=== PATIENT | male | born 1975 | race Caucasian/White ===

== ENCOUNTER → 2021-02-25 09:53 | Outpatient (CLI) | payer OTHER, SELFPAY ==
[2021-02-25 11:48] LABS: Absolute Lymphocyte Count 1.88 X10^3/uL (0.83-4.51); Absolute Neutrophil Count 5.3 X10^3/uL (2.0-7.7); Basophil# 0.05 X10^3/uL; Basophil% 0.6 % (0-1); Eosinophil# 0.09 X10^3/uL; Eosinophils% 1.1 % (0-5); Hematocrit 49.5 % (40-54); Hemoglobin 16.7 g/dL (13.0-16.5); Lymphocyte # 1.88 X10^3/ul (0.83-4.51); Lymphocyte % 23.1 % (19-41); Mean Corp Hgb Conc 33.7 g/dL (32-36); Mean Corpuscular Hgb 29.7 pg (27.0-32.0); Mean Corpuscular Volume 88.1 fL (80-94); Mean Platelet Vol. 9.8 fl (6.2-12.0); Monocyte# 0.73 X10^3/uL; NRBC Flagged by Analyzer 0 % (0-5); Neutrophil # 5.31 X10^3/uL (2.7-7.7); Neutrophil % 65.3 % (47-70); Platelet Count 346 K/mm3 (150-450); RBC Distribution Width CV 12.7 % (11.6-14.6); RBC Distribution Width SD 41.2 fl (35.1-43.9); Red Blood Count 5.62 M/mm3 (4.6-6.2); White Blood Count 8.1 K/mm3 (4.4-11.0)
[2021-02-25 12:14] LABS: ALB/GLOB Ratio 0.9 RATIO (0.9-2.4); AST(SGOT) 12 U/L (15-37); Alanine Aminotransfer ALT/SGPT 21 U/L (16-61); Albumin, Serum 3.7 g/dL (3.2-5.0); Alkaline Phosphatase 88 U/L (45-117); Anion Gap 5 (5-15); BUN 16 mg/dL (7-18); BUN/Creat Ratio 12.2 RATIO (10-20); Calcium,Total 9.4 mg/dL (8.5-10.1); Chloride 106 mmol/L (98-107); Cholesterol 194 mg/dL (200); Creatinine, Serum 1.31 mg/dL (0.70-1.30); EST Glomerular Filtration Rate 63 mL/min (>60); Est Glom Filt Rate - Afr Amer 76 mL/min (>60); Globulin 4.2 g/dL (2.2-4.2); Glucose 88 mg/dL (74-106); High Density Lipoprotein 56 mg/dL; Potassium 4.3 mmol/L (3.5-5.1); Protein, Total 7.9 g/dL (6.4-8.2); Sodium Level 141 mmol/L (136-145); Triglycerides 78 mg/dL; Very Low Density Lipoprotein 16 mg/dL (5-40)
== END ==
PROVIDERS: PCP Family Medicine; Referring Provider Family Medicine; Visit Provider Family Medicine
DX: G47.30 Sleep apnea, unspecified (principal); R31.9 Hematuria, unspecified; E78.5 Hyperlipidemia, unspecified
CPT/HCPCS: 36415; 80053; 80061; 85025

== ENCOUNTER → 2021-03-17 13:00 | Outpatient (CLI) | payer OTHER, SELFPAY | PROVIDERS: PCP Family Medicine; Referring Provider Family Medicine; Visit Provider Family Medicine | DX: G47.30 Sleep apnea, unspecified (principal) | CPT/HCPCS: 95806 ==

== ENCOUNTER → 2021-03-24 12:00 | Outpatient (CLI) | payer OTHER, SELFPAY ==
[2021-03-10 07:41] VITALS: BMI 36.5
== END ==
PROVIDERS: PCP Family Medicine; Referring Provider Family Medicine; Visit Provider Family Medicine
DX: Z46.89 Encounter for fitting and adjustment of other specified devices (principal)

== ENCOUNTER 2021-04-01 08:53 | Day surgery (SDC) | payer OTHER, SELFPAY ==
[2021-03-10 07:41] VITALS: BMI 36.5
--- NOTE | 2021-04-01 | IMM_PTH ---
PATIENT: ERIC OLIVAS LOC: EN U#:[id number] AGE/SX: 45/M ROOM: RE04/01/[address]: Dr. Brendon Tanner MD : 1975 BED: DIS: 04/01/2021 SPEC #: [id number] RECD: 04/05/21 11:11 STATUS: HERIBERTO REQ #: [id number] SANTY: 04/01/21 00:[address]: Brendon Tanner DEPT: IMMUNOHISTOCHEMISTRY RECD BY: Shira Miranda ENTERED: 04/05/21 11:13 SP TYPE: IMMUNO OTHR DR: Dr. Zuleima Botello MD Tissues: A - Sigmoid colon biopsy Procedures: MSH2 (add) MLH-1 (add) MSH6 (add) Anti-PMS2 (add) VELASQUEZ-2 (add) HER2 MOJGAN (add) P53 (add) KI-67 (initial) PHYSICIAN & INSTITUTION [place] [id number] SPECIMEN INFORMATION: Tissue Source: A ? Proximal sigmoid colon mass biopsy Clinical Info: Family history colon cancer Specimen Number: [id number] CPT code: 35734, 64899 x7 METHODOLOGY: Deparaffinized sections of prefer/formalin-fixed tissue or PAP/DQ stained slides are incubated with monoclonal/polyclonal antibodies/oligonucleotide probes. Localization is made via biotin free immunoperoxidase method. Appropriate controls are performed and reacted as expected. Results on target cell population are indicated in the following table: RESULTS: ANTIBODY / CLONE RESULT Block A Ki-67 (30-9) positive, >90% P53 (DO-7) positive, >95% VELASQUEZ-2 (SP21) positive MLH-1 (M1) positive MSH2 (25D12) positive MSH6 (44) positive PMS2 (XZV3853) positive Her-2neu (CB11) negative These tests were developed and their performance characteristics determined by [facility]. They may not have been cleared or approved by the U.S. Food and Drug Administration. The FDA has determined that such clearance or approval is not necessary. The above immunohistochemical/dualISH markers are ordered and reviewed by the Pathologist. INTERPRETATION: A. Proximal sigmoid colon mass, biopsy: Invasive adenocarcinoma. Result of Microsatellite Instability Study: Negative (no loss of mismatch protein; no microsatellite instability detected). AM:jesus alberto 04/07/2021
[2021-04-01 09:15] VITALS: BP 123/88; PULSE 84; RESP 16; TEMP 36.1; O2SAT 100; BMI 35.4
[2021-04-01] MEDS: Lactated Ringers 1,000 ML 100 ML IV (09:15)
--- NOTE | 2021-04-01 09:26 | HP.PCM_ITS ---
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: No Accompanied by: Is patient in pain?: No Allergies shellfish derived Adverse Reaction (Intermediate, Verified 03/10/21 07:39) GI Upset Medications ibuprofen 800 mg tablet 800 mg PO BID PRN tab 03/10/21 [History Confirmed 03/10/21] psyllium husk 0.52 gram capsule 0.52 g PO ONCE cap 03/10/21 [History Confirmed 03/10/21] PFSH Medical History Back problem Blood in stool Constipation Family history of colon cancer in father Fatigue Hemorrhoid Intermittent lower abdominal pain Suspected sleep apnea Surgical History No significant past surgical history Family History Father Colon cancer Lung cancer Liver cancer Hypertension CVA (cerebral vascular accident) Mother MS (multiple sclerosis) Social History Smokeless tobacco user: chewing tobacco alcohol intake: current alcohol intake frequency: a few times a week substance use type: does not use caffeine: Yes frequency: does not exercise HPI HPI HPI: ERIC OLIVAS, is a 45 M who presents to the office today for surgical consultation regarding family history of colon cancer in his father. 45-year-old gentleman. His father developed colon cancer at age 52. The patient for multiple years has had intermittent rectal bleeding but this has been attributed to internal hemorrhoids. If he utilizes Metamucil that he has decreased bleeding. Occasionally has discomfort but not severe. More recently over the past several months he has lost some weight about 10 to 15 pounds. He thinks it may be secondary to not eating junk food. 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 He has not had COVID-19 of which he is aware. He has not pursued vaccination today. He does chew tobacco. He occasionally will have intermittent bouts of low abdominal pain. These are nonspecific. As of February 25, 2021 his white count was 8.1 with he will 16.7 medical at 49.5 with a count 346,000 with a normal differential. BUN was 16 creatinine 1.31. Liver function tests were normal. The patient is referred by his primary care physician Dr. Zuleima Botello for surgical consultation for possible colonoscopy based upon family history and a written copy of my consultation will be returned to her. ROS General General: Yes fatigue; No weight change, appetite, colon cancer, breast cancer or weakness HEENT HEENT: No difficulty swallowing, eye injury, eye surgery, swollen glands or hoarseness Endo Endocrine: No thyroid disease, diabetes mellitus, thyroid cancer, Hair loss, heat intolerance or cold intolerance Skin Skin: No rash or changing moles Musc Musculoskeletal: Yes back problems; No arthritis, rheumatoid arthritis, gout or joint pain Cardio Cardiovascular: No murmur, pacemaker, heart disease, atrial fibrillation, high blood pressure, heart attack, heart stent, palpitations, shortness of breat with exertion or chest pain Psych Psychiatric: No depression, anxiety or hearing voices Resp Respiratory: No shortness of breath, Yes sleep apnea, No cough, No COPD, No asthma, No emphysema and No wheezing Gastro Gastrointestinal: Yes abdominal pain, No nausea or vomiting, No diarrhea, Yes constipation, Yes blood in stool, No acid reflux, Yes hemorrhoids, No ulcers, No gallbladder problem and No black,tarry stools Satya Hematologic: No blood thinners, No blood disorders, No bleeding, No anemia and No blood clots Neuro Neurologic: No weakness Exam Const General: cooperative, comfortable and no acute distress Nutritional Appearance: obese Orientation: alert and awake [facility] Head: normal to inspection Eyes General: appearance normal, both eyes and all related structures Chest Chest palpation & inspection: normal inspection of the chest Resp Effort & Inspection: normal respiratory effort Auscultation: clear to auscultation bilaterally Cardio Rate: regular rate Rhythm: regular rhythm GI Palpation: soft and no hepatosplenomegaly Auscultation: normal bowel sounds Musc Cervical Spine: normal cervical lordosis Neuro General: patient alert and patient awake Extrem General: no calf tenderness bilaterally Psych Affect: anxious affect COVID (Procedure Consent) Procedure Criteria Procedure Criteria: Yes Elective The surgeon/proceduralist and patient have discussed in detail the risk of exposure to and/or potential harm posed by the COVID-19 virus with having a surgery/procedure at this time versus the risk of delaying the surgery/procedure. It is not possible to know either the risk of delaying the surgery or procedure or chance of getting an infection with perfect accuracy, but a joint decision was made between the patient and the surgeon/proceduralist to proceed at this time with the scheduled surgery/procedure as indicated on the consent form. Assessment and Plan Assessment and Plan (1) Family history of colon cancer in father: Status: Acute Comment: age 52 Plan Details Additional Comments: Family history of colon cancer in his father at age 52. Chronic history of intermittent rectal bleeding which was felt to be secondary to hemorrhoids. Some mild anal discomfort. 10 to 15 pound recent weight loss undetermined whether this is dietary change. Some intermittent low abdominal pain of undetermined etiology. I propose for him a colonoscopy with possible biopsy or polypectomy as indicated. In detail have discussed the technique benefit risk complications and alternatives. He is a larger gentleman has had some difficulties with tending toward constipation more. I propose a 2-day bowel prep. I also would like to use monitored anesthesia care. I did take the opportunity today to additionally chromosomal disorders counselor the patient regarding the COVID-19 vaccination. I have discussed benefit and risks of vaccination. He has had an additional opportunity to ask and have questions answered. He will consider his ongoing option in that regard. I appreciate the opportunity of assisting with his surgical care Copy: Dr. Zuleima Tanner M.D., F.A.C.S. I have re-examined the patient. There are no clinical changes since date of exam.
--- NOTE | 2021-04-01 10:00 | COLBX_PTH ---
PATIENT: ERIC OLIVAS LOC: EN U#:[id number] AGE/SX: 45/M ROOM: RE04/01/[address]: Dr. Brendon Tanner MD : 1975 BED: DIS: 04/01/2021 SPEC #: [id number] RECD: 04/01/21 13:07 STATUS: HERIBERTO CHRISTENSEN #: [id number] SANTY: 04/01/21 10:[address]: Brendon Tanner DEPT: SURGICAL PATHOLOGY RECD BY: Ana Paula Moss ENTERED: 04/01/21 13:27 SP TYPE: COLON BX OT DR: Dr. Zuleima Botello MD Tissues: A - Sigmoid colon biopsy B - Sigmoid colon biopsy Procedures: Surgery Specimen Level IV HEADER OPERATION: Colonoscopy (MAC) PRE-OP DIAGNOSIS: Family history of colon cancer TISSUE SUBMITTED: A ? Proximal sigmoid mass biopsy at 30 cm, B ? Mid sigmoid lesion biopsy MICROSCOPIC DIAGNOSIS A. Proximal sigmoid colon mass, biopsy: Invasive well to moderately differentiated adenocarcinoma. See comment. B. Mid sigmoid colon lesion, biopsy: Hyperplastic polyp. AM:jesus alberto 04/05/2021 COMMENT A. Immunohistochemistry ([id number]) for microsatellite instability will be performed and the results will be reported separately. MICROSCOPIC DESCRIPTION Slides are reviewed. GROSS DESCRIPTION A - Received in fixative is one container labeled with the patient's name and designated proximal sigmoid mass biopsy. The specimen consists of multiple irregular fragments of light edwards soft tissue that in aggregate measure 1 x 0.5 x 0.1 cm. The specimen is totally submitted in one cassette. B - Received in fixative is one container labeled with the patient's name and designated mid sigmoid lesion biopsy. The specimen consists of multiple irregular fragments of light edwards soft tissue that in aggregate measure 0.5 x 0.5 x 0.1 cm. The specimen is totally submitted in one cassette. / SJ:jesus alberto 04/01/21 TC:0 CPT: 97757 x2
[2021-04-01 10:30] VITALS: BP 113/81; BP 123/88; PULSE 84; RESP 16; TEMP 36.9; O2SAT 97
--- NOTE | 2021-04-01 10:33 | OP.CCLET_ITS ---
04/01/2021 Zuleima Botello [place] [id number] [address] Re : Colonoscopy procedure for Lan Garcia Dear Dr. Botello This procedure was performed on Thursday, April 01, 2021. My impressions and recommendations are as follows: Impressions : - One 5 mm polyp in the mid sigmoid colon, removed with a cold biopsy forceps. Resected and retrieved. - Malignant partially obstructing tumor in the proximal sigmoid colon. Biopsied. - An area in the proximal sigmoid colon just distal to the obstructing lesion was successfully injected with michael ink. Recommendations : - Discharge patient to home. - Resume previous diet. - Continue present medications. - Surgical consultation for consideration of a left hemicolectomy at appointment to be scheduled. - Repeat colonoscopy in 4 months for surveillance. My findings are described in the full procedure note, which is enclosed. If I can be of further assistance, please feel free to contact me at Doctor phone number(s): Work: . Sincerely, Brendon Tanner MD 04/01/2021 10:33:09 AM This report has been signed electronically.
--- NOTE | 2021-04-01 10:33 | OP.COLON_ITS ---
Patient Name: Lan Garcia Procedure Date: 04/01/2021 9:57 AM Date of : 1975 Age: 45 Procedure: Colonoscopy Indications: Screening in patient at increased risk: Family history of 1st-degree relative with colorectal cancer before age 60 years Providers: Brendon Tanner MD Referring MD: Zuleima Botello Medicines: See the Anesthesia note for documentation of the administered medications Patient Profile: Last Colonoscopy: none. The patient's first colonoscopy is today. Complications: No immediate complications. Procedure: Pre-Anesthesia Assessment: - Prior to the procedure, a History and Physical was performed, and patient medications and allergies were reviewed. The patient's tolerance of previous anesthesia was also reviewed. The risks and benefits of the procedure and the sedation options and risks were discussed with the patient. All questions were answered, and informed consent was obtained. Prior Anticoagulants: The patient has taken no previous anticoagulant or antiplatelet agents. ASA Grade Assessment: II - A patient with mild systemic disease. After reviewing the risks and benefits, the patient was deemed in satisfactory condition to undergo the procedure. After I obtained informed consent, the scope was passed under direct vision. Throughout the procedure, the patient's blood pressure, pulse, and oxygen saturations were monitored continuously. The pediatric colonoscope was introduced through the anus and advanced to the sigmoid colon. The colonoscopy was performed without difficulty. The patient tolerated the procedure well. The quality of the bowel preparation was good. Scope In: 10:08:17 AM Scope Out: 10:24:34 AM Total Procedure Duration Time 0 hours 16 minutes 17 seconds Findings: The perianal and digital rectal examinations were normal. A 5 mm polyp was found in the mid sigmoid colon. The polyp was sessile. The polyp was removed with a cold biopsy forceps. Resection and retrieval were complete. An infiltrative partially obstructing large mass was found in the proximal sigmoid colon. The mass was circumferential. No bleeding was present. This was biopsied with a cold forceps. An area in the proximal sigmoid colon was successfully injected with 4 mL Grecia ink for tattooing. Impression: - One 5 mm polyp in the mid sigmoid colon, removed with a cold biopsy forceps. Resected and retrieved. - Malignant partially obstructing tumor in the proximal sigmoid colon. Biopsied. - An area in the proximal sigmoid colon just distal to the obstructing lesion was successfully injected with grecia ink. Recommendation: - Discharge patient to home. - Resume previous diet. - Continue present medications. - Surgical consultation for consideration of a left hemicolectomy at appointment to be scheduled. - Repeat colonoscopy in 4 months for surveillance. Procedure Code(s): --- Professional --- 96840, 52, Colonoscopy, flexible; with biopsy, single or multiple 04476, 52, Colonoscopy, flexible; with directed submucosal injection(s), any substance Diagnosis Code(s): --- Professional --- Z80.0, Family history of malignant neoplasm of digestive organs D12.5, Benign neoplasm of sigmoid colon C18.7, Malignant neoplasm of sigmoid colon K56.690, Other partial intestinal obstruction CPT copyright 2017 [employer]. All rights reserved. The codes documented in this report are preliminary and upon tax compliance manager review may be revised to meet current compliance requirements. Brendon Tanner MD 04/01/2021 10:33:09 AM This report has been signed electronically. Number of Addenda: 0 Note Initiated On: 04/01/2021 9:57 AM
[2021-04-01 10:35] VITALS: BP 123/88; BP 98/67; PULSE 76; RESP 16; O2SAT 95
[2021-04-01 10:40] VITALS: BP 103/71; BP 123/88; PULSE 81; RESP 16; O2SAT 98
[2021-04-01 10:45] VITALS: BP 109/82; BP 123/88; PULSE 67; RESP 16; TEMP 37.2; O2SAT 97
[2021-04-01 11:32] LABS: Absolute Neutrophil Count 3.6 X10^3/uL (2.0-7.7); Basophil# 0.03 X10^3/uL; Basophil% 0.6 % (0-1); Eosinophil# 0.05 X10^3/uL; Eosinophils% 0.9 % (0-5); Hematocrit 47.8 % (40-54); Hemoglobin 15.8 g/dL (13.0-16.5); Lymphocyte % 22.6 % (19-41); Mean Corp Hgb Conc 33.1 g/dL (32-36); Mean Corpuscular Hgb 28.9 pg (27.0-32.0); Mean Corpuscular Volume 87.4 fL (80-94); Mean Platelet Vol. 9.1 fl (6.2-12.0); Monocyte# 0.48 X10^3/uL; NRBC Flagged by Analyzer 0 % (0-5); Neutrophil # 3.55 X10^3/uL (2.7-7.7); Neutrophil % 66.7 % (47-70); Platelet Count 303 K/mm3 (150-450); RBC Distribution Width CV 12.8 % (11.6-14.6); RBC Distribution Width SD 41.3 fl (35.1-43.9); Red Blood Count 5.47 M/mm3 (4.6-6.2); White Blood Count 5.3 K/mm3 (4.4-11.0)
--- NOTE | 2021-04-01 11:40 | RAD_ITS ---
STUDY: X-RAY CHEST REASON FOR EXAM: Male, 45 years old. Colon mass TECHNIQUE: PA and lateral views of the chest. COMPARISON: None. FINDINGS: The lungs are clear and expanded. There is no demonstrated pleural abnormality. Normal size heart. Normal mediastinum and say. Normal visualized pulmonary arteries. Normal visualized aortic arch and descending thoracic aorta. Normal visualized thoracic spine. Normal visualized ribs, clavicles, and shoulders. There is no demonstrated abnormality of the visualized soft tissue structures of the upper abdomen. RAD/Chest PA and Lateral IMPRESSION: Normal x-ray examination of the chest. Electronically Signed: Renato Alexandra MD at 15:18 EDT , Service support ,
[2021-04-01 11:41] VITALS: BP 123/88
[2021-04-01 11:54] LABS: AST(SGOT) 9 U/L (15-37); Alanine Aminotransfer ALT/SGPT 17 U/L (16-61); Albumin, Serum 3.5 g/dL (3.2-5.0); Alkaline Phosphatase 91 U/L (45-117); Anion Gap 4 (5-15); BUN 10 mg/dL (7-18); BUN/Creat Ratio 8.2 RATIO (10-20); Calcium,Total 8.8 mg/dL (8.5-10.1); Chloride 103 mmol/L (98-107); Creatinine, Serum 1.22 mg/dL (0.70-1.30); EST Glomerular Filtration Rate 68 mL/min (>60); Est Glom Filt Rate - Afr Amer 82 mL/min (>60); Estimated Creatinine Clearance 83.93 ml/min; Globulin 3.5 g/dL (2.2-4.2); Glucose 88 mg/dL (74-106); Potassium 4.8 mmol/L (3.5-5.1); Sodium Level 139 mmol/L (136-145)
[2021-04-02 08:42] LABS: Carcinoembryonic Antigen 1.1 ng/mL (0.0-4.7)
== END 2021-04-01 11:43 ==
LOC: EN 08:53 → AC 08:54
PROVIDERS: PCP Family Medicine; Referring Provider Family Medicine; Visit Provider Surgery
PROC: 0DJD8ZZ Inspection of Lower Intestinal Tract, Via Natural or Artificial Opening Endoscopic (ICD-10-PCS; CPT 45378; principal; 2021-04-01 09:55)
DX: Z12.11 Encounter for screening for malignant neoplasm of colon (principal); C18.7 Malignant neoplasm of sigmoid colon; K63.5 Polyp of colon; E66.9 Obesity, unspecified; F17.220 Nicotine dependence, chewing tobacco, uncomplicated; G47.30 Sleep apnea, unspecified; Z80.0 Family history of malignant neoplasm of digestive organs; Z68.35 Body mass index [BMI] 35.0-35.9, adult
CPT/HCPCS: 45380; 45381; 71046; 80053; 82378; 85025; 87426; 88305; 88341; 88342; C9803; J7120; A4648; J2405

== ENCOUNTER → 2021-04-07 08:46 | Outpatient (CLI) | payer OTHER, SELFPAY ==
[2021-04-01 09:15] VITALS: BMI 35.4
--- NOTE | 2021-04-07 09:13 | CT_ITS ---
STUDY: CT ABDOMEN AND PELVIS WITH CONTRAST REASON FOR EXAM: Male, 45 years old. Colon mass. RADIATION DOSAGE (If Supplied By Facility): CTDIvol = ( 16.87 ) mGy, DLP = ( 1452.96 ) mGycm TECHNIQUE: Transaxial images were obtained from the dome of the diaphragm to the symphysis pubis with oral contrast. Oral and amp; IV Readi-CAT and amp; 100mL Isovue-300 was administered. Sagittal and coronal images were reconstructed. Individualized dose optimization techniques were used for this CT. COMPARISON: None. FINDINGS: The visualized lung bases are unremarkable. Mild coronary artery calcification. Scattered multiple hepatic cysts. There are multiple gallstones. Normal spleen. Normal pancreas. Normal bilateral adrenal glands. 1 cm cyst in the upper pole of the right kidney. Small cysts in the upper pole of the left kidney. There is a small hiatal hernia. This 1.7 cm x 1.7 cm by 1.1 cm rounded low density abnormality in the second portion of the duodenum at the level of the ampulla of VATER. Endoscopic evaluation is recommended. Normal small intestine. There is diffuse thickening of the sigmoid colon as seen on axial image #110 and coronal image #46 through 52. Mild increased markings are seen in the surrounding fat. There is evidence of a sigmoid diverticulosis. The appendix is visualized and appears normal. Normal abdominal aorta. Normal inferior vena cava. Normal retroperitoneum. The bladder is not completely distended although there is evidence of diffuse bladder wall thickening. There are prostatic calcifications. There is a small umbilical hernia containing fat. There are mild degenerative changes of the visualized lumbar spine. CT/Abdomen/Pelvis WITH Contrast IMPRESSION: Scattered hepatic cysts. Small bilateral renal cysts likely more prominent on the left side. There is a 1.7 cm x 1.7 cm by 1.1 cm rounded low density abnormality in the second portion of the duodenum at the level of the ampulla of VATER. Endoscopic evaluation is recommended. Diffuse mural thickening of the sigmoid colon as described. Mild increased markings in the surrounding peritoneal fat as well as diverticulosis. Electronically Signed: Renato Alexandra MD at 10:02 EDT , Service support ,
== END ==
LOC: CT 08:47
PROVIDERS: PCP Family Medicine; Referring Provider Surgery; Visit Provider Surgery
DX: K63.89 Other specified diseases of intestine (principal)
CPT/HCPCS: 74177; Q9967

== ENCOUNTER 2021-04-11 08:46 | Inpatient (IN) | payer OTHER, SELFPAY ==
--- NOTE | 2021-04-07 08:45 | EKG12_ITS ---
Test Reason : PREOP Blood Pressure : / mmHG Vent. Rate : 091 BPM Atrial Rate : 091 BPM P-R Int : 180 ms QRS Dur : 076 ms QT Int : 356 ms P-R-T Axes : 056 004 034 degrees QTc Int : 437 ms Normal sinus rhythm Normal ECG Confirmed by RASHEL LAL, RADHA ([id number]), sound editor CYNDIE SOLOMON ([id number]) on 04/11/2021 12:44:22 PM Referred By: Brendon Tanner Confirmed By:RADHA KISER MD
[2021-04-07 12:15] LABS: Magnesium 2.3 mg/dL (1.6-2.6)
[2021-04-08 05:27] VITALS: BMI 35.4
[2021-04-11] VITALS (15 sets, daily range): BP systolic 114–167; BP diastolic 82–107; PULSE 73–107; RESP 16–17; TEMP 36.2–37.2; O2SAT 96–100; BMI 35.5; BMI 35.4
--- NOTE | 2021-04-11 | IMM_PTH ---
PATIENT: ERIC OLIVAS LOC: MS3 U#:[id number] AGE/SX: 45/M ROOM: PA313 RE04/11/[address]: Dr. Brendon Tanner MD : 1975 BED: 1 DIS: 04/12/2021 SPEC #: [id number] RECD: 04/14/21 12:08 STATUS: HERIBERTO CHRISTENSEN #: [id number] SANTY: 04/11/21 00:[address]: Brendon Tanner DEPT: IMMUNOHISTOCHEMISTRY RECD BY: Shira Miranda ENTERED: 04/14/21 12:09 SP TYPE: IMMUNO OTHR DR: Dr. Zuleima Botello MD Tissues: F - Liver, NOS Procedures: SMA (add) DESMIN (add) Vimentin (initial) S-100 (add) PHYSICIAN & INSTITUTION [place] [id number] SPECIMEN INFORMATION: Tissue Source: F ? Liver biopsy Clinical Info: Colon cancer Specimen Number: [id number] CPT code: 43041, 23363 x3 METHODOLOGY: Deparaffinized sections of prefer/formalin-fixed tissue or PAP/DQ stained slides are incubated with monoclonal/polyclonal antibodies/oligonucleotide probes. Localization is made via biotin free immunoperoxidase method. Appropriate controls are performed and reacted as expected. Results on target cell population are indicated in the following table: RESULTS: ANTIBODY / CLONE RESULT Block F Vimentin (V9) positive Actin (1A4) negative Desmin (CE-R-11) negative S-100 (4C4.9) positive These tests were developed and their performance characteristics determined by [facility]. They may not have been cleared or approved by the U.S. Food and Drug Administration. The FDA has determined that such clearance or approval is not necessary. The above immunohistochemical/dualISH markers are ordered and reviewed by the Pathologist. INTERPRETATION: F. Liver biopsy: Fragments of nerve bundles attached to capsular surface of the liver tissue. Negative for carcinoma. SJ:jesus alberto 04/15/2021
[2021-04-11] MEDS: Acetaminophen 500 MG Tablet 1000 MG PO ×2 (09:48→20:06)
[2021-04-11] MEDS: Gabapentin 600 MG Tablet PO (09:48)
[2021-04-11] MEDS: Lactated Ringers 1,000 ML 40 ML IV (09:49)
[2021-04-11 09:51] LABS: Bedside Glucose 111 mg/dL (70-110)
[2021-04-11] MEDS: Cefotetan 2 GM in 0.9% NS 100 ML IV (10:44)
--- NOTE | 2021-04-11 10:44 | HP.PCM_ITS ---
History and Physical Date of Admission: 04/11/21 Intake Visit Reasons: Discuss c-scope path and testing Chief Complaint: f/u c-scope Ocean Import Representative Required: No Is patient in pain?: No Allergies shellfish derived Adverse Reaction (Intermediate, Verified 04/08/21 10:19) GI Upset Medications ibuprofen 800 mg tablet 800 mg PO BID PRN tab 03/10/21 [History Confirmed 04/08/21] psyllium husk 0.52 gram capsule 0.52 g PO ONCE cap 03/10/21 [History Confirmed 04/08/21] metronidazole 500 mg tablet 500 mg PO DIRECTED #6 tab 04/08/21 [Rx Confirmed 04/08/21] neomycin 500 mg tablet 500 mg PO DIRECTED #6 tab 04/08/21 [Rx Confirmed 04/08/21] PFSH Medical History Alcohol use Back problem BiPAP (biphasic positive airway pressure) dependence Blood in stool Colon cancer Colonic mass Constipation CPAP (continuous positive airway pressure) dependence Family history of colon cancer in father Fatigue Hemorrhoid Intermittent lower abdominal pain Migraine headache Sleep apnea Smoker Surgical History No significant past surgical history Family History Father Colon cancer Lung cancer Liver cancer Hypertension CVA (cerebral vascular accident) Mother MS (multiple sclerosis) Social History Smoking Status: Current every day smoker tobacco type: smokeless tobacco Smokeless tobacco user: chewing tobacco alcohol intake: current alcohol intake frequency: a few times a week substance use type: does not use caffeine: Yes frequency: does not exercise HPI HPI HPI: ERIC OLIVAS, is a 45 M who presents to the office today for ongoing surgical discussion regarding a previous attempted colonoscopy on April 01, 2021 identified an obstructing sigmoid lesion. Since that time the patient has had a complete metabolic profile which was normal. A CEA level on April 01, 2021 which was 1.1. A chest x-ray on April 01, 2021 which was normal. A complicated CT scan of the abdomen pelvis showing hepatic cysts and renal cysts and a 1.7 x 1.7 x 1.1 cm rounded low-density abnormality of the second portion of the duodenum at the level of the ampulla of Vater. Multiple gallstones. Diffuse mural thickening of the sigmoid colon. Mild increased markings seen in the surrounding fat. Sigmoid to have a low cysts. Small umbilical hernia containing fat. Intake Visit Reasons: CSCOPE Chief Complaint: Family hx of colon cancer Ocean Import Representative Required: No Accompanied by: Is patient in pain?: No Allergies shellfish derived Adverse Reaction (Intermediate, Verified 03/10/21 07:39) GI Upset Medications ibuprofen 800 mg tablet 800 mg PO BID PRN tab 03/10/21 [History Confirmed 03/10/21] psyllium husk 0.52 gram capsule 0.52 g PO ONCE cap 03/10/21 [History Confirmed 03/10/21] PFSH Medical History Back problem Blood in stool Constipation Family history of colon cancer in father Fatigue Hemorrhoid Intermittent lower abdominal pain Suspected sleep apnea Surgical History No significant past surgical history Family History Father Colon cancer Lung cancer Liver cancer Hypertension CVA (cerebral vascular accident) Mother MS (multiple sclerosis) Social History Smokeless tobacco user: chewing tobacco alcohol intake: current alcohol intake frequency: a few times a week substance use type: does not use caffeine: Yes frequency: does not exercise HPI HPI HPI: ERIC OLIVAS, is a 45 M who presents to the office today for surgical consultation regarding family history of colon cancer in his father. 45-year-old gentleman. His father developed colon cancer at age 52. The patient for multiple years has had intermittent rectal bleeding but this has been attributed to internal hemorrhoids. If he utilizes Metamucil that he has decreased bleeding. Occasionally has discomfort but not severe. More recently over the past several months he has lost some weight about 10 to 15 pounds. He thinks it may be secondary to not eating junk food. 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 He has not had COVID-19 of which he is aware. He has not pursued vaccination today. He does chew tobacco. He occasionally will have intermittent bouts of low abdominal pain. These are nonspecific. As of February 25, 2021 his white count was 8.1 with he will 16.7 medical at 49.5 with a count 346,000 with a normal differential. BUN was 16 creatinine 1.31. Liver function tests were normal. The patient is referred by his primary care physician Dr. Zuleima Botello for surgical consultation for possible colonoscopy based upon family history and a written copy of my consultation will be returned to her. ROS General General: Yes fatigue; No weight change, appetite, colon cancer, breast cancer or weakness HEENT HEENT: No difficulty swallowing, eye injury, eye surgery, swollen glands or hoarseness Endo Endocrine: No thyroid disease, diabetes mellitus, thyroid cancer, Hair loss, heat intolerance or cold intolerance Skin Skin: No rash or changing moles Musc Musculoskeletal: Yes back problems; No arthritis, rheumatoid arthritis, gout or joint pain Cardio Cardiovascular: No murmur, pacemaker, heart disease, atrial fibrillation, high blood pressure, heart attack, heart stent, palpitations, shortness of breat with exertion or chest pain Psych Psychiatric: No depression, anxiety or hearing voices Resp Respiratory: No shortness of breath, Yes sleep apnea, No cough, No COPD, No asthma, No emphysema and No wheezing Gastro Gastrointestinal: Yes abdominal pain, No nausea or vomiting, No diarrhea, Yes constipation, Yes blood in stool, No acid reflux, Yes hemorrhoids, No ulcers, No gallbladder problem and No black,tarry stools Satya Hematologic: No blood thinners, No blood disorders, No bleeding, No anemia and No blood clots Neuro Neurologic: No weakness Exam Const General: cooperative, comfortable and no acute distress Nutritional Appearance: obese Orientation: alert and awake [facility] Head: normal to inspection Eyes General: appearance normal, both eyes and all related structures Chest Chest palpation & inspection: normal inspection of the chest Resp Effort & Inspection: normal respiratory effort Auscultation: clear to auscultation bilaterally Cardio Rate: regular rate Rhythm: regular rhythm GI Palpation: soft and no hepatosplenomegaly Auscultation: normal bowel sounds Musc Cervical Spine: normal cervical lordosis Neuro General: patient alert and patient awake Extrem General: no calf tenderness bilaterally Psych Affect: anxious affect COVID (Procedure Consent) Procedure Criteria Procedure Criteria: Yes Elective The surgeon/proceduralist and patient have discussed in detail the risk of exposure to and/or potential harm posed by the COVID-19 virus with having a surgery/procedure at this time versus the risk of delaying the surgery/procedure. It is not possible to know either the risk of delaying the surgery or procedure or chance of getting an infection with perfect accuracy, but a joint decision was made between the patient and the surgeon/proceduralist to proceed at this time with the scheduled surgery/procedure as indicated on the consent form. Assessment and Plan Assessment and Plan (1) Family history of colon cancer in father: Status: Acute Comment: age 52 Plan Details Additional Comments: Family history of colon cancer in his father at age 52. Chronic history of intermittent rectal bleeding which was felt to be secondary to hemorrhoids. Some mild anal discomfort. 10 to 15 pound recent weight loss undetermined whether this is dietary change. Some intermittent low abdominal pain of undetermined etiology. I propose for him a colonoscopy with possible biopsy or polypectomy as indicated. In detail have discussed the technique benefit risk complications and alternatives. He is a larger gentleman has had some difficulties with tending toward constipation more. I propose a 2-day bowel prep. I also would like to use monitored anesthesia care. I did take the opportunity today to additionally res counselor the patient regarding the COVID-19 vaccination. I have discussed benefit and risks of vaccination. He has had an additional opportunity to ask and have questions answered. He will consider his ongoing option in that regard. I appreciate the opportunity of assisting with his surgical care Copy: Dr. Zuleima Tanner M.D., F.A.C.S. YAMILE (Procedure Consent) Procedure Criteria Procedure Criteria: Yes Elective The surgeon/proceduralist and patient have discussed in detail the risk of exposure to and/or potential harm posed by the COVID-19 virus with having a surgery/procedure at this time versus the risk of delaying the surgery/procedure. It is not possible to know either the risk of delaying the surgery or procedure or chance of getting an infection with perfect accuracy, but a joint decision was made between the patient and the surgeon/proceduralist to proceed at this time with the scheduled surgery/procedure as indicated on the consent form. Assessment and Plan Assessment and Plan (1) Colon cancer: Status: Acute Qualifiers: Colon location: sigmoid Qualified Code(s): C18.7 - Malignant neoplasm of sigmoid colon (2) Cholelithiasis with chronic cholecystitis: Status: Chronic Qualifiers: Biliary obstruction: without biliary obstruction Cholelithiasis location: gallbladder Qualified Code(s): K80.10 - Calculus of gallbladder with chronic cholecystitis without obstruction (3) Umbilical hernia without obstruction or gangrene: Status: Acute (4) Liver cyst: Status: Acute (5) Renal cyst: Status: Acute (6) Duodenal mass: Status: Acute Plan - Dr. Brendon Tanner MD: 45-year-old gentleman with an obstructing sigmoid colon adenocarcinoma. I was unable to advance past it with my colonoscope. There is evidence of transmural inflammation and mesenteric streaking. This is at the level of the pelvic brim crossing the ureter. In addition it is of note that he has a rounded lesion of the duodenum near the ampulla of Vater. He has multiple gallstones identified. He has liver cysts and renal cysts that would otherwise appear to be benign. He has a small umbilical hernia. At this point I think it is reasonable to offer him a laparoscopic cholecystectomy with cholangiograms to get the cholangiogram to assess the distal common bile duct and flow into the duodenum. He is already scheduled for colon surgery and he has a obstructing lesion. I would not be combining duodenal surgery and colon surgery and so we will follow-up with the duodenal finding at a later stage with an upper endoscopy. The cholangiogram may be additionally helpful and his chronic cholecystitis cholelithiasis will be treated. I anticipate hopefully a laparoscopic sigmoid colectomy. I will convert to a hand-assisted or open approach if indicated. Because of its positioning I will see if urology is available to put up a left ureteral catheter. I anticipate using a ERAS program. Anticipate performing a bilateral tap block under laparoscopic visualization. The patient is aware of the technique, benefit, risk, alternatives. He has had an opportunity to ask and have questions answered. He is aware that this procedure is of increased complexity. In addition he will require after he is recovered a follow-up colonoscopy as the entire colon was unable to be inspected. Because of the severity of the process identified endoscopically I was not comfortable performing a barium enema for co ncern of during the process into an urgent complete colonic obstruction. We will pursue the postoperative esophagogastroduodenoscopy either at the same time or sooner if deemed to be indicated. Today's appointment was an extensive 45-minute consultative descriptive appointment regarding plan treatment plans. The patient is aware that postoperatively we will be strongly recommending hematology oncology consultation. He is aware that additional treatment may be required. He has had an opportunity to ask and have questions answered. He is scheduled for definitive surgery on April 11, 2021. We will proceed as noted. Copy: Dr. Zuleima Tanner M.D., F.A.C.S. Plan Details Other Medications: New: neomycin Take 2 tablets by mouth at 1pm, 3pm, and 11pm the day prior to your surgery 500 mg PO DIRECTED 6 tabs 0RF metronidazole Take 2 tablets by mouth at 1pm,3pm, and 11pm the day prior to your surgery 500 mg PO DIRECTED 6 tabs 0RF Coding Level of Care Code Off vis,est,level 3 Diagnoses Colon cancer C18.7 Colon location: sigmoid Cholelithiasis with chronic cholecystitis K80.10 Biliary obstruction: without biliary obstruction Cholelithiasis location: gallbladder Umbilical hernia without obstruction or gangrene K42.9 Liver cyst K76.89 Renal cyst N28.1 Duodenal mass K31.89 04/08/21 1232<Electronically signed by Brendon Tanner MD>Date Brendon Tanner MD I have re-examined the patient. There are no clinical changes since date of exam.
--- NOTE | 2021-04-11 10:44 | PCM.DC ---
Documented by User: Dr. Brendon Tanner MD 04/11/21 10:45 Discharge Instructions Diet Discharge Diet: Light diet - advance as tolerated (if you have questions about your diet instructions, please talk to you doctor.) Activity Discharge Activity: May Not Drive (for 3-5 days or while taking narcotic pain medicine.) May shower in (days): 1 Lifting Restrictions: 10 pounds Dressing / Incision Call your doctor if your incision/area has: Continuous Slow Oozing, Sudden Increased Bleeding, Increased Pain/ Swelling, Increased Redness and Foul Smelling Discharge Call your doctor if you observe: Fever of 101 or Higher Suture Line Care: Avoid Pulling/Pushing and Avoid Pinching/Bending Additional Dressing/Incision Instructions:: Change or remove dressing in 4 days. Leave steri-strips in place for 1 week. Follow Up Care Please Follow Up With: Brendon Tanner MD When: Call [phone] to make an appointment to be seen in about 10 days. Test Results: Test results from this visit will be discussed in further detail at your follow-up appointment, if applicable. Discharge Plan Admission Admit Date/Time: 04/11/21 08:46 Primary Reason for Your Visit: Adenocarcinoma of the sigmoid colon Attending Provider: Brendon Tanner Primary Care Provider: Zuleima Botello Instructions Additional Instructions / Restrictions: You may walk around as often as you would like. No lifting greater than 10 pounds. No football drills or catching passes. Heating pad for the back pain. Continue to alternate Tylenol and Motrin for pain as needed. Discharge Orders/Prescriptions Prescriptions: New acetaminophen 500 mg Tablet 1,000 mg PO Q6H Qty: 0 RF: 0 Continued ibuprofen 800 mg tablet 800 mg PO BID PRN (Reason: Pain) RF: 0 psyllium husk [Metamucil] 0.52 gram capsule 0.52 g PO ONCE RF: 0 Discontinued metronidazole 500 mg tablet 500 mg PO DIRECTED RF: 0 neomycin 500 mg tablet 500 mg PO DIRECTED RF: 0 Other Ambulatory Orders: CBC W/Diff, Automated (Routine) Timeframe: [id number] [facility] - Location: Laboratory Ordered By: Selina BARAJAS Referrals / Follow Up: Zuleima Botello MD [Primary Care Provider] - Disposition Disposition (needs filled in before D/C Order can be placed): Home, Self Care Documented by User: Selina BARAJAS PA-C 04/12/21 13:25 Discharge Plan Admission Admit Date/Time: 04/11/21 08:46 Primary Reason for Your Visit: Adenocarcinoma of the sigmoid colon Attending Provider: Brendon Tanner Primary Care Provider: Zuleima Botello Instructions Additional Instructions / Restrictions: You may walk around as often as you would like. No lifting greater than 10 pounds. No football drills or catching passes. Heating pad for the back pain. Continue to alternate Tylenol and Motrin for pain as needed. Discharge Orders/Prescriptions Prescriptions: New acetaminophen 500 mg Tablet 1,000 mg PO Q6H Qty: 0 RF: 0 Continued ibuprofen 800 mg tablet 800 mg PO BID PRN (Reason: Pain) RF: 0 psyllium husk [Metamucil] 0.52 gram capsule 0.52 g PO ONCE RF: 0 Discontinued metronidazole 500 mg tablet 500 mg PO DIRECTED RF: 0 neomycin 500 mg tablet 500 mg PO DIRECTED RF: 0 Other Ambulatory Orders: CBC W/Diff, Automated (Routine) Timeframe: 20210413 Facility: [facility] - Location: Laboratory Ordered By: Selina BARAJAS Referrals / Follow Up: Zuleima Botello MD [Primary Care Provider] - Disposition Disposition (needs filled in before D/C Order can be placed): Home, Self Care
[2021-04-11] MEDS: Famotidine 20mg IV Push Syringe Q24 300 MG IV (10:50)
--- NOTE | 2021-04-11 11:00 | GALL_PTH ---
PATIENT: ERIC OLIVAS MARIBELL LOC: [facility]3 U#:[id number] AGE/SX: 45/M ROOM: [facility] [place] RE04/11/[address]: Dr. Brendon Tanner MD : 1975 BED: 1 DIS: 04/12/2021 SPEC #: [id number] RECD: 04/12/21 07:30 STATUS: HERIBERTO CHRISTENSEN #: [id number] SANTY: 04/11/21 11:[address]: Brendon Tanner DEPT: SURGICAL PATHOLOGY RECD BY: Yakov Rico ENTERED: 04/12/21 08:36 SP TYPE: CONNOR QUIROZ DR: Dr. Zuleima Botello MD Tissues: A - Gallbladder, NOS B - Sigmoid colon biopsy C - Colon Donuts D - Colon Donuts E - Peritoneal cavity, NOS F - Liver, NOS Procedures: Surgery Specimen Level III Surgery Specimen Level IV Surgery Specimen Level V Surgery Specimen Level HEADER OPERATION: ERAS, laparoscopic hand assist, bilateral transabdominis plane percutaneous block, cholecystectomy, sigmoid colectomy PRE-OP DIAGNOSIS: Colon cancer, malignant neoplasm of sigmoid colon; cholelithiasis with chronic cholecystitis TISSUE SUBMITTED: A ? Gallbladder, B ? Sigmoid colon, C ? Rectal donut, D ? Sigmoid donut, E ? Left mid abdomen peritoneal nodule, F ? Liver biopsy MICROSCOPIC DIAGNOSIS A. Gallbladder, cholecystectomy: Chronic cholecystitis and cholelithiasis. B. Sigmoid colon, colectomy: Moderately differentiated invasive adenocarcinoma. Three out of 39 lymph nodes positive for metastatic carcinoma. See cancer summary in the comment section. C. Rectal donut: Colonic donut, no pathologic diagnosis. D. Sigmoid donut: Colonic donut, no pathologic diagnosis. E. Left mid abdominal peritoneal nodule, biopsy: A piece of adipose tissue with extensive fat necrosis and chronic inflammation. Negative for carcinoma. F. Liver, core biopsy: Fragments of benign liver parenchymal tissue and adherent fragments of nerve bundles at the fibrous capsule of the liver tissue. Negative for carcinoma. See comment. SJ:jesus alberto 04/14/2021 COMMENT B. COLON CANCER SUMMARY Procedure: Sigmoidectomy Tumor site: Sigmoid colon Tumor size: 5 x 4.5 x 1.2 cm Macroscopic tumor perforation: Not identified Histologic type: Adenocarcinoma Histologic grade: G2 (moderately differentiated) Tumor extension: Tumor invades through the muscularis propria into pericolonic tissue. Margins: Margins are uninvolved by invasive carcinoma, high-grade dysplasia, intramucosal adenocarcinoma and adenoma. The tumor is 6 cm away from one axial resection margin. The tumor is <0.1 cm away from the serosal surface. Treatment effect: No known presurgical therapy. Lymphvascular invasion: Not identified Perineural invasion: Not identified Type of polyp in which invasive carcinoma arose: None identified Tumor deposits: Not identified Regional lymph nodes: Number of lymph nodes examined: 39 Number of lymph nodes involved: 3 Largest focus of metastatic tumor measures 0.7 x 0.6 cm. No extranodal extension is noted. Ancillary studies: Previously performed on section or tumor ([id number]) Microsatellite instability study by IHC: Negative (no loss of mismatch protein; no microsatellite instability detected). Additional pathologic findings: None identified PATHOLOGIC STAGE: pT3 pN1b pMx The above summary is in compliance with [employer] (CAP) Cancer Protocols Checklist and [place] [employer] on Cancer (AJCC), Staging Manual, 8th Ed. F. Immunohistochemistry ([id number]) supports the above diagnosis. Please make reference to previous specimen ([id number]) proximal sigmoid colon mass, biopsy with diagnosis of invasive well to moderately differentiated adenocarcinoma. Case has been reviewed in consultation with Dr. Reynoso who concurs with the above diagnosis. IDC:AM MICROSCOPIC DESCRIPTION Slides are reviewed. GROSS DESCRIPTION A - Received is one container labeled with the patient's name and designated gallbladder. The specimen consists of a gallbladder measuring 9.6 x 4.5 x 3.2 cm. The external surface is smooth and glistening. Focally, it is granular, hemorrhagic and contains cautery artifact. The lumen of the gallbladder contains yellow-green mucoid bile and multiple yellow calculi ranging in size from 1.5 to 2.2 cm in greatest dimension. The mucosa is bile-stained and without any mass lesions. The gallbladder wall averages 0.2 cm in thickness and is free of mass lesions. Weasand Trimmer sections of the gallbladder and the cystic duct at margin of resection are submitted in one cassette. / AM: 04/12/21 B - Received in fixative is one container labeled with the patient's name and designated sigmoid colon. The specimen consists of a 17 x 5 cm segment of bowel located approximately 6 cm from the opened end of bowel and approximately 11.5 cm from the closed end of bowel is a pink-edwards apple core lesion measuring 5 x 4.5 x 1.2 cm. The serosa adjacent to the mass appears somewhat puckered. This surface is inked in black ink. The remainder of bowel mucosa is thrown into normal folds. No other mass lesions are identified. The specimen is left for additional fixation. / AM: 04/12/21 Serial sections of the mass reveal extension of mass into bowel wall and possibly involving pericolic fatty tissue. Weasand Trimmer sections are submitted as follows: 1 - mucosal margins (opened end inked black), 2 - uninvolved bowel, 3-8 - mass, 9 - one lymph node, serially sectioned, 10-15 multiple lymph nodes in each cassette. / AM: 04/13/21 C - Received in fixative is one container labeled with the patient's name and designated rectal donut. The specimen consists of a smooth glistening light to dark edwards mucosal donut measuring 2.5 cm in diameter and 1.5 cm in thickness. No mass lesions are identified. Weasand Trimmer sections are submitted in one cassette. / AM: 04/12/21 D - Received in fixative is one container labeled with the patient's name and designated sigmoid donut. The specimen consists of a smooth glistening light to dark edwards mucosal donut measuring 2.2 cm in diameter and 1 cm in thickness. No mass lesions are identified. Weasand Trimmer sections are submitted in one cassette. / AM: 04/12/21 E - Received in fixative is one container labeled with the patient's name and designated left mid abdomen peritoneal nodule. The specimen consists of a firm, edwards-white nodule measuring 2.2 x 1.7 x 1.2 cm surrounded by yellow fatty tissue that measures 3 x 3 x 1 cm. Serial sections of the nodule reveal chalky, yellow cut surfaces. Weasand Trimmer sections are submitted in two cassettes. / AM: 04/12/21 F - Received in fixative is one container labeled with the patient's name and designated liver biopsy. The specimen consists of multiple elongated fragments of edwards tissue that in aggregate measure 0.6 x 0.5 x 0.1 cm. The specimen is totally submitted in one cassette. / AM:jesus alberto 04/12/21 TC:0 CPT: 54866, 55391, 57779, 71938 x3
--- NOTE | 2021-04-11 11:13 | OP.PCM_ITS ---
Report of Operation Date of Procedure: 04/11/21 Pre-Operative Diagnosis: C18.7 - Malignant neoplasm of sigmoid colon Post-Operative Diagnosis: C18.7 - Malignant neoplasm of sigmoid colon Surgery/Procedure Performed:: Cystoscopy and left stent placement Description of Surgical Findings:: Is a 45-year-old male who plans to have surgery for his colon and the general surgeon has requested that had a left ureteral stent be placed congressional assistant with the surgical case. Patient was taken back to the operating room at the smooth induction of general anesthesia he was placed in dorsolithotomy position. The penis and testicles were prepped and draped in the usual sterile fashion. I went into the meatus with a 21 [place] rigid ureteroscope I had to dilate the meatus slightly and able to get the scope into the urethra entire length the urethra was normal no strictures or scar tissue, the prostate was normal, inside the bladder the bladder was completely normal no tumors stones were seen the trigone was normal, I then identified the left ureteral orifice I used a Glidewire 0.038 and then over the Glidewire I advanced a 5 [place]ian open-ended ureteral catheter. Once the catheter was all up into the left kidney about 26 cm stent I left the catheter in place drain the bladder remove the cystoscope then put a catheter into the bladder and then the case was turned over to the general surgeon to continue with his case. Type of Anesthesia: General Drains: stent left Admit VTE Documentation VTE Present on Admission: No VTE Mechan Device Prophylaxis: SCD's
--- NOTE | 2021-04-11 11:30 | RAD_ITS ---
STUDY: INTRAOPERATIVE CHOLANGIOGRAM. REASON FOR EXAM: Male, 45 years old. Laparoscopic cholecystectomy. FLUOROSCOPY TIME (if supplied): ( 22.6 seconds ) minutes/seconds. Cine loop consisting of 153 images was obtained. TECHNIQUE: An intraoperative cholangiogram was performed by the surgeon. Imaging was submitted. COMPARISON: None. FINDINGS: The visualized intrahepatic biliary ducts are unremarkable. The common bile duct is not dilated. No intraluminal filling defect is seen. RAD/Cholangiogram/ O R,Initial IMPRESSION: Unremarkable intraoperative cholangiogram. Electronically Signed: Renato Alexandra MD at 13:06 EDT , Service support ,
[2021-04-11] MEDS: Lubricating Jelly 60 GM Tube 30 GM TOPICAL ×2 (11:44→15:00)
[2021-04-11] MEDS: Bupivacaine 0.25% 30 ML Vial (16:00)
[2021-04-11] MEDS: 0.9% Normal Saline (Pres. free 10 ML Vial (16:00)
[2021-04-11] MEDS: BUPIVACAINE LIPOSOME/PF 20 ML VIAL OPERA.SITE (16:00)
--- NOTE | 2021-04-11 16:19 | OP.PCM_ITS ---
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 Rueda a cystoscopy with left ureteral catheter placement Laparoscopic cholecystectomy with cholangiograms, Nolan-Cut needle core right lobe liver biopsy Laparoscopic sigmoid colectomy Laparoscopic resection of left mid abdominal peritoneal nodule Bilateral transabdominis plane percutaneous block Description of Surgical Findings:: Timeout informed consent was obtained. 45-year-old gentleman was taken to the operating placed supine table underwent general trach intubation esthesia he was placed in low lithotomy position on a beanbag performed a cystoscopy and left ureteral catheter placement. I kept him in the low lithotomy position the abdomen perineum was sterilely prepped and draped he received 2 g of cefotetan intravenously. Ioban drape was used to help hold drapes in place. In the right mid abdomen using a 5 mm Visiport technique I gain access to the abdomen cleanly without trocar injury. An additional 5 mm port was placed laterally on the right. 5 Brock port was placed in the epigastric area. An additional 5 mm port was placed just superior and right of the umbilicus. The gallbladder had multiple adhesions of omentum to it these were carefully bluntly dissected free Enseal device was used to transect where needed hook cautery was used and Hem-o-shellie clips were used finally the infundibular the gallbladder could be identified the critical view was achieved with the cystic duct cystic artery. Hem-o-shellie clip was placed on the cystic duct and through a 14-gauge Angiocath cholangiogram catheter was inserted. Fluoroscopically controlled cholangiograms were obtained demonstrating normal ductal anatomy and free flow into the small bowel. 2 Hem-o-shellie clips were placed on the cystic duct stump prior to transecting it. The cystic artery was clipped twice proximally once distally prior to transecting it. The gallbladder was dissected free from the liver bed using electrocautery. The gallbladder is completely released there is [place] no spillage of gallbladder was placed in a retrieval bag and kept in the right upper quadrant. I now addressed the sigmoid colon. A 5 mm port was placed in the right anterior superior iliac crest area. Using that in the right mid abdomen and periumbilical ports I dissected free the left colon incising the peritoneum all the way up almost to the spleen. The left colon was mobilized the course of the left ureter identified. I then dissected down to the peritoneum I could see where the tumor was and the Grecia ink marking the distal aspect. I was able to get circumferential control of distal rectosigmoid. Identified subsequent transit with 2 firings of gold load of an [place]. Was able to dissect free the peritoneum up to the RADHA. I made a Pfannenstiel incision suprapubically incised the rectus fascia transversely and then split the muscles vertically getting access through the peritoneum actually was quite difficult I then placed a wound protector but despite efforts could not get the colon to mobilize spelt the that the RADHA had to be taken and so dropped the: Back within the abdomen resecured the wound protector reinsufflated the abdomen dissected the RADHA free and then secured it with 2 Hem-o-shellie clips proximally and distally transected it with the Enseal device further dissected free the peritoneum to allow for full mobilization of the left colon. I then allowed the pneumo apparent deflate through an antiviral valve reexited the tumor suprapubically finished the mesentery release transected the colon with a Mackenzie clamp put a whip suture of 2-[address] to 33 mm anvil and secured that and then redid the whip suture. Because of a possible shelf fish nausea allergy I did not place any Betadine on that drop that back within the abdomen. The rectum was then irrigated with a dilute Betadine solution. Using the sizers I could see that there was good length of the rectosigmoid. I used a 33 mm stapler watch the trocar exit admitted to the anvil. The 2 were approximated. I then did a rigid sigmoidoscopy demonstrating staple line to be intact there was [place] no air leak. It appeared to be viable the bowel proximally and distally to it appeared to be pink. Excess fluid was aspirated free there was no tension on the anastomosis. Donuts were inspected and noted to be intact. The greater omentum was placed overlying. Now the left midabdomen part of the pericolonic fatty tissue there was a nodule that was here to the left mid abdomen I transected that free from its adherence the abdominal wall and t ransected from the fibrofatty tissue. Initially I thought it might have been an inflamed diverticulum but there was no connection directly with the bowel. That was placed in a retrieval bag. Finally there was a very small 3 mm superficial white almost scarlike effect of the right middle lobe of the liver. I used a Nolan-Cut needle to remove in the sample that area. Did not overtly look significantly suspicious. At area was treated with cautery. The abdomen was then completely inspected the liver was noted to be hemostatic the gallbladder bed hemostatic excess fluid was aspirated free the pelvis was noted to be intact. The peritoneal nodules in a retrieval bag of the gallbladder was in a retrieval bag and the colon specimen had been exited at the time of the anastomosis. I now remove the 10 mm trocar in the right lower quadrant and closed that fascial site with a simple suture of 0 Vicryl in a Gra[place]ee needle. It is of note that the suprapubic incision had to be extended transversely and a little bit vertically due to the size of the tumor bulk. I then approximated the retroperitoneum with a running 0 Vicryl. I approximated the vertical incision on the anterior rectus fascia with his 0 PDS. I then repaired the fascia transversely with a running 0 PDS. [place] that I had good solid control. It is of note that during the gallbladder procedure once that was completed I did a bilateral subcostal tap block under laparoscopic visualization and I used the Exparel saline 0.25% Marcaine mixture. At the completion of the procedure I used the remaining local to anesthetize around the suprapubic incision and subcutaneous tissues. Skin edges were approximated with either simple or running septic or 4-0 Monocryl. Steri-Strips Telfa OpSite dressings applied. Sponge and instrument and needle counts were reported to certainly correct blood loss was 100 cc. He tolerated procedure well second recovery anesthetic condition no apparent complication. The left ureteral catheter was removed. Specimen gallbladder. Nolan-Cut needle core right lobe liver biopsy. Left mid abdominal wall peritoneal nodule. Sigmoid colon. Drains none. Blood loss 100 cc. The patient was taken to recovery area in satisfactory addition without apparent complication Brendon Tanner M.D., F.A.C.S. Type of Anesthesia: Block,Therapeutic and General Anesthesiologist: Ubaldo Betancourt
[2021-04-11] MEDS: Lactated Ringers 1,000 ML 75 ML IV (20:06)
[2021-04-11] MEDS: oxyCODONE 5 MG Tablet PO (20:57)
[2021-04-11] MEDS: Docusate Sodium 100 MG Capsule PO (21:26)
--- NOTE | 2021-04-11 23:17 | NURSING ---
Pt up to floor 1930. Upon entering room pt is laying in bed with his hands behind his head. States he feels great. Denies pain, tenderness, nausea. Dressings are intact. Pt assisted to sit on the edge of the bed, vitals obtained. Pt wanting to get into chair. This was completed about 20 minutes later. Pt was provided gum and educated. Pt then did 2 laps around entire unit with this RN after assessments and being checked into unit. Educated on ambulation. Is very proactive with this at this time. Denies dizziness or pain with ambulation. Pt is having pain in back, states this is chronic and is his only pain at this time. Pt is tolerating clear fluids and is requesting more.
--- NOTE | 2021-04-11 23:30 | NURSING ---
Pt just ambulated 3 laps around entire unit with REGIONAL TRAINER. HR elevated to 120 with ambulation and immediately decreased to 106 with rest. No other symptoms at this time. Will monitor.
[2021-04-12] MEDS: Acetaminophen 500 MG Tablet 1000 MG PO ×2 (01:10→09:21)
[2021-04-12] MEDS: oxyCODONE 5 MG Tablet PO (01:11)
--- NOTE | 2021-04-12 01:26 | NURSING ---
Pt again ambulated around entire unit twice with this RN. Back pain remains biggest complaint. No abdominal pain. Drainage to dressings marked. Tolerating clear liquids well.
--- NOTE | 2021-04-12 03:30 | NURSING ---
Pt walked 3 laps around unit with charge hand. Still no complaints of abdominal tenderness or nausea. Has not passed any flatus but states he feels like it's moving around in there. Drainage on dressings has not increased from prior dee. Is still tolerating clear liquids and has increased his intake.
[2021-04-12 04:10] VITALS: BP 135/82; PULSE 86; RESP 17; TEMP 37; O2SAT 95
--- NOTE | 2021-04-12 05:36 | PCM.PN.SRG ---
Subjective Subjective Patient's only complaint is left lower back pain. He otherwise feels good. He has been able to ambulate in the halls. No flatus yet. No nausea. He is tolerating liquids well Objective Data Objective Data Vital Signs: Vital Signs Temp Pulse Resp BP Pulse Ox 98.6 F 86 17 135/82 H 95 04/12/21 04:10 04/12/21 04:10 04/12/21 04:10 04/12/21 04:10 04/12/21 04:10 Oxygen Flow Rate (L/min) 6 Oxygen Delivery Method Room Air Weight: 261 lb Body Mass Index (BMI) 35.4 Intake & Output: Intake and Output for Last 24 Hours 04/10/21 04/11/21 04/12/21 23:59 23:59 23:59 Intake Total 3776.83 / 3776.83 1660 / 1660 Output Total 375 / 375 900 / 900 Balance 3401.83 / 3401.83 760 / 760 Lab / Micro Data Labs: Laboratory Results - last 24 hr 04/11/21 09:42: POC Glucose 111 H Radiography Diagnostic Testing: Radiology Impression Cholangiogram 04/11/21 11:30 IMPRESSION: Unremarkable intraoperative cholangiogram. Electronically Signed: Renato Alexandra MD at 13:06 EDT , Service support , Physical Exam GI GI Narrative: Soft, nontender, occasional bowel sound Assessment & Plan Assessment/Plan (1) Colon cancer: QUALIFIERS: Colon location: sigmoid Qualified Code(s): C18.7 - Malignant neoplasm of sigmoid colon PLAN: Excellent progress status post colon cancer resection and cholecystectomy. We will stop IV fluids. We will initiate transitional diet. Remove Petersen. Patient will continue to mobilize. Pending progress earliest discharge potentially later today. Brendon Tanner M.D., F.A.C.S.
[2021-04-12 06:36] LABS: Hematocrit 43.6 % (40-54); Hemoglobin 14.6 g/dL (13.0-16.5); Mean Corp Hgb Conc 33.5 g/dL (32-36); Mean Corpuscular Hgb 29.2 pg (27.0-32.0); Mean Corpuscular Volume 87.2 fL (80-94); Mean Platelet Vol. 9.3 fl (6.2-12.0); Platelet Count 349 K/mm3 (150-450); RBC Distribution Width CV 13.1 % (11.6-14.6); RBC Distribution Width SD 41.7 fl (35.1-43.9); White Blood Count 13.6 K/mm3 (4.4-11.0)
[2021-04-12 06:58] VITALS: BP 135/84; PULSE 88; RESP 16; TEMP 36.9; O2SAT 98
[2021-04-12 07:15] LABS: Anion Gap 6 (5-15); BUN 10 mg/dL (7-18); Calcium,Total 8.4 mg/dL (8.5-10.1); Chloride 103 mmol/L (98-107); Creatinine, Serum 1.25 mg/dL (0.70-1.30); EST Glomerular Filtration Rate 66 mL/min (>60); Est Glom Filt Rate - Afr Amer 80 mL/min (>60); Estimated Creatinine Clearance 81.91 ml/min; Glucose 106 mg/dL (74-106); Potassium 3.8 mmol/L (3.5-5.1); Sodium Level 138 mmol/L (136-145)
[2021-04-12] MEDS: Ibuprofen 400 MG Tablet 800 MG PO (07:23)
[2021-04-12 09:19] VITALS: BP 119/75; PULSE 98; RESP 16; TEMP 36.9; O2SAT 95
[2021-04-12] MEDS: Enoxaparin 40 MG/0.4 ML Syringe SC (09:21)
[2021-04-12] MEDS: Docusate Sodium 100 MG Capsule PO (09:22)
--- NOTE | 2021-04-12 10:55 | CASEMGMT ---
RN CHENCHO Face to Face with patient for initial transition planning/care coordination assessment. RN CM introduced self and role at [facility]. Patient sitting chair, alert and oriented, at bedside. Patient willing to participate in assessment and is able to answer all questions appropriately. Care providers, pharmacy, and demographics verified. Patient wishes to discharge home, denies need for home health at this time. Patient states he has no further needs or concerns at this time. CM to follow for discharge planning needs that may arise. PCP: Rosmery Specialists: Ciro Curry Pharmacy: [facility] Insurance: MMO Prescription Benefit: yes Living Will/HPOA: none LNOK: Living Arrangements: Patient lives with in a single story home with 2 steps to enter the home. Patient is independent at home. Transportation: self/ DME/HHC: patient states he has raised toilet and cpap at home. Patient denies previous HHC. Disposition Plan: Patient to discharge home with family support and follow-up plans in place. Talya MCKEON, RN, CM
[2021-04-12 13:43] VITALS: BP 121/84; PULSE 88; RESP 16; TEMP 36.6; O2SAT 96
--- NOTE | 2021-04-12 14:23 | PHA.DC.MR ---
Pharmacy Service has performed discharge medication reconciliation for this patient. The patient's discharge medication list was reviewed for discrepancies and discrepancies were resolved. Home Medications ibuprofen 800 mg tablet 800 mg PO BID PRN tab 03/10/21 psyllium husk 0.52 gram capsule 0.52 g PO ONCE cap 03/10/21 acetaminophen 1,000 mg PO Q6H #0 tab 04/12/21
== END 2021-04-12 14:20 | disposition home or self-care (01) | DRG 330 ==
LOC: ACINP 12:46 → MS3 16:42
PROVIDERS: Anesthesiology; Urology; Admitting Provider Surgery; PCP Family Medicine; Referring Provider Surgery; Visit Provider Surgery
PROC: 0DBN4ZZ Excision of Sigmoid Colon, Percutaneous Endoscopic Approach (ICD-10-PCS; CPT 44204; principal; 2021-04-11 10:35)
PROC: 0T778DZ Dilation of Left Ureter with Intraluminal Device, Via Natural or Artificial Opening Endoscopic (ICD-10-PCS; 2021-04-11 10:35)
DX: C18.7 Malignant neoplasm of sigmoid colon (principal); K80.10 Calculus of gallbladder with chronic cholecystitis without obstruction; C77.2 Secondary and unspecified malignant neoplasm of intra-abdominal lymph nodes; Z80.0 Family history of malignant neoplasm of digestive organs; F17.220 Nicotine dependence, chewing tobacco, uncomplicated; E66.9 Obesity, unspecified; N28.1 Cyst of kidney, acquired; K42.9 Umbilical hernia without obstruction or gangrene; Z68.35 Body mass index [BMI] 35.0-35.9, adult
CPT/HCPCS: 36415; 74300; 76000; 80048; 82962; 83735; 85027; 87635; 88304; 88305; 88307; 88309; 88341; 88342; 93005; 99251; 99406; C9803; J7120; U0005; C1760; G0463; J2405; J3490; U0003

== ENCOUNTER → 2021-04-13 08:52 | Outpatient (CLI) | payer OTHER, SELFPAY ==
[2021-04-11 19:48] VITALS: BMI 35.4
[2021-04-13 10:09] LABS: Absolute Lymphocyte Count 1.54 X10^3/uL (0.83-4.51); Absolute Neutrophil Count 8.3 X10^3/uL (2.0-7.7); Basophil# 0.03 X10^3/uL; Basophil% 0.3 % (0-1); Eosinophil# 0.03 X10^3/uL; Eosinophils% 0.3 % (0-5); Hematocrit 41.7 % (40-54); Hemoglobin 13.6 g/dL (13.0-16.5); Lymphocyte # 1.54 X10^3/ul (0.83-4.51); Lymphocyte % 13.9 % (19-41); Mean Corp Hgb Conc 32.6 g/dL (32-36); Mean Corpuscular Hgb 29.2 pg (27.0-32.0); Mean Corpuscular Volume 89.7 fL (80-94); Mean Platelet Vol. 9.4 fl (6.2-12.0); Monocyte# 1.13 X10^3/uL; Monocyte% 10.2 % (0-10); NRBC Flagged by Analyzer 0 % (0-5); Neutrophil # 8.29 X10^3/uL (2.7-7.7); Neutrophil % 74.9 % (47-70); Platelet Count 295 K/mm3 (150-450); RBC Distribution Width CV 13.6 % (11.6-14.6); RBC Distribution Width SD 44.5 fl (35.1-43.9); Red Blood Count 4.65 M/mm3 (4.6-6.2); White Blood Count 11.1 K/mm3 (4.4-11.0)
== END ==
PROVIDERS: PCP Family Medicine; Referring Provider Physician Assistant; Visit Provider Physician Assistant
DX: C18.9 Malignant neoplasm of colon, unspecified (principal)
CPT/HCPCS: 36415; 85025

== ENCOUNTER → 2021-04-18 09:52 | Outpatient (CLI) | payer OTHER, SELFPAY ==
[2021-04-18 09:04] VITALS: BMI 35.4
[2021-04-18 10:27] LABS: BNP,B-Type NATRIURETIC PEPTIDE 13.9 pg/mL (0-100)
== END ==
PROVIDERS: PCP Family Medicine; Referring Provider Physician Assistant; Visit Provider Physician Assistant
DX: R63.5 Abnormal weight gain (principal)
CPT/HCPCS: 36415; 83880

== ENCOUNTER 2021-05-02 09:37 | Day surgery (SDC) | payer OTHER, SELFPAY ==
[2021-04-18 09:04] VITALS: BMI 35.4
[2021-05-02] MEDS: Lactated Ringers 1,000 ML 100 ML IV (09:50)
[2021-05-02 10:10] VITALS: BP 126/92; PULSE 75; RESP 16; TEMP 36.7; O2SAT 98; BMI 36.5
--- NOTE | 2021-05-02 10:51 | HP.PCM_ITS ---
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 Is patient in pain?: No Allergies shellfish derived Adverse Reaction (Intermediate, Verified 04/18/21 09:04) GI Upset Medications ibuprofen 800 mg tablet 800 mg PO BID PRN tab 03/10/21 [History Confirmed 04/18/21] psyllium husk 0.52 gram capsule 0.52 g PO ONCE cap 03/10/21 [History Confirmed 04/18/21] acetaminophen 1,000 mg PO Q6H #0 tab 04/12/21 [Rx Confirmed 04/18/21] furosemide 20 mg tablet 20 mg PO DAILY 3 Days #3 tab 04/18/21 [Rx Confirmed 04/18/21] PFSH Medical History (Updated 04/18/21 @ 09:48 by Selina BARAJAS, PA-C) Alcohol use Back problem BiPAP (biphasic positive airway pressure) dependence Blood in stool Colon cancer Colonic mass Constipation CPAP (continuous positive airway pressure) dependence Family history of colon cancer in father Fatigue Hemorrhoid Intermittent lower abdominal pain Migraine headache Sleep apnea Smoker Weight gain Surgical History (Updated 04/18/21 @ 09:04 by Pooja Arshad) History of colectomy (~03/2021) History of colonoscopy (~03/2021) No significant past surgical history Family History Father Colon cancer Lung cancer Liver cancer Hypertension CVA (cerebral vascular accident) Mother MS (multiple sclerosis) Social History Smoking Status: Current every day smoker tobacco type: smokeless tobacco Smokeless tobacco user: chewing tobacco alcohol intake: current alcohol intake frequency: a few times a week substance use type: does not use caffeine: Yes frequency: does not exercise HPI HPI HPI: ERIC OLIVAS, is a 45 M who presents to the office today s/p laparoscopic hand assist sigmoid colectomy, cholecystectomy. liver biopsy, and removal of peritoneal nodule. Dr. Tanner performed the above procedure on 04/11/21. Patient tolerated the procedure extremely well. Patient was discharged on POD #1. He is tolerating a transitional diet well. He notes some soreness of the abdominal muscles when he uses them. He notes having formed stool. He is urinating well. He denies nausea, vomiting with diet. He denies fever. Pathology demonstrated: MICROSCOPIC DIAGNOSIS A. Gallbladder, cholecystectomy:Chronic cholecystitis and cholelithiasis. B. Sigmoid colon, colectomy:Moderately differentiated invasive adenocarcinoma.Three out of 39 lymph nodes positive for metastatic carcinoma.See cancer summary in the comment section. C. Rectal donut:Colonic donut, no pathologic diagnosis. D. Sigmoid donut:Colonic donut, no pathologic diagnosis. E. Left mid abdominal peritoneal nodule, biopsy:A piece of adipose tissue with extensive fat necrosis and chronic inflammation.Negative for carcinoma. F. Liver, core biopsy:Fragments of benign liver parenchymal tissue and adherent fragments of nerve bundles at the fibrous capsule of the liver tissue.Negative for carcinoma.See comment. SJ:jesus alberto 04/14/2021 COMMENT B. COLON CANCER SUMMARY Procedure: Sigmoidectomy Tumor site: Sigmoid colonTumor size: 5 x 4.5 x 1.2 cm Macroscopic tumor perforation: Not identified Histologic type: Adenocarcinoma [facility] DEPARTMENT OF LABORATORY SURGICAL [id number] [facility] [place], [place] [phone] Page 2of 3The contents of this transmission are privileged, confidential and exempt from disclosure under applicable law. If you have received this information in error, call . _ERIC OLIVAS MR# [id number] grade: G2 (moderately differentiated)Tumor extension: Tumor invades through the muscularis propria into pericolonic tissue. Margins: Margins are uninvolved by invasive carcinoma, high-grade dysplasia, intramucosal adenocarcinoma and adenoma.The tumor is 6 cm away from one axial resection margin. The tumor is <0.1 cm away from the serosal surface. Treatment effect: No known presurgical therapy. Lymphvascular invasion: Not identified Perineural invasion: Not identified Type of polyp in which invasive carcinoma arose: None identified Tumor deposits: Not identified Regional lymph nodes: Number of lymph nodes examined: 39 Number of lymph nodes involved: 3 Largest focus of metastatic tumor measures 0.7 x 0.6 cm. No extranodal extension is noted. Ancillary studies: Previously performed on section or tumor ([id number])Microsatellite instability study by IHC: Negative (no loss of mismatch protein; no microsatellite instability detected). Additional pathologic findings: None identified PATHOLOGIC STAGE: pT3 pN1b pMx The above summary is in compliance with [employer] [place] [employer] (CAP) Cancer Protocols Checklist and [place] Joint Committee on Cancer (AJCC), Staging Manual, 8th Ed.F. Immunohistochemistry ([id number]) supports the above diagnosis.Please make reference to previous specimen ([id number]) proximal sigmoid colon mass, biopsy with diagnosis of invasive well to moderately differentiated adenocarcinoma.Case has been reviewed in consultation with Dr. Reynoso who concurs with the above diagnosis. IDC:AM Patient denies complications with anesthesia. He will need chemotherapy. We will schedule him today for this procedure. He has also had an 8 pound weight gain. He denies shortness of breath. He has been urinating well. Patient also has a 1.7 cm x 1.7 cm by 1.1 cm rounded low density abnormality in the second portion of the duodenum at the level of the ampulla of VATER. An upper scope has not been completed as the colon cancer was identified first. ROS General General: Yes fatigue and colon cancer; No weight change, appetite, breast cancer or weakness HEENT HEENT: No difficulty swallowing, eye injury, eye surgery, swollen glands or hoarseness Endo Endocrine: No thyroid disease, diabetes mellitus, thyroid cancer, Hair loss, heat intolerance or cold intolerance Skin Skin: No rash or changing moles Musc Musculoskeletal: Yes back problems; No arthritis, rheumatoid arthritis, gout or joint pain Cardio Cardiovascular: No murmur, pacemaker, heart disease, atrial fibrillation, high blood pressure, heart attack, heart stent, palpitations, shortness of breat with exertion or chest pain Psych Psychiatric: No depression, anxiety or hearing voices Resp Respiratory: No shortness of breath, Yes sleep apnea, No cough, No COPD, No asthma, No emphysema and No wheezing Gastro Gastrointestinal: Yes abdominal pain, No nausea or vomiting, No diarrhea, Yes constipation, Yes blood in stool, No acid reflux, Yes hemorrhoids, No ulcers, No gallbladder problem and No black,tarry stools Satya Hematologic: No blood thinners, No blood disorders, No bleeding, No anemia and No blood clots Neuro Neurologic: No weakness Exam Const General: cooperative, healthy appearing, comfortable and no acute distress HENMT Head: normal to inspection Eyes General: appearance normal, both eyes and all related structures Neck Neck: normal visual inspection Neck mass: No Resp Effort & Inspection: normal respiratory effort Auscultation: clear to auscultation bilaterally Cardio Rate: regular rate Rhythm: regular rhythm GI Inspection: incision (incisions c/d/i. No erythema or infection noted. ) Palpation: soft, no guarding and nontender Auscultation: normal bowel sounds Skin General: no rashes or lesions noted Neuro General: no focal motor deficits and CN's II-XI intact bilaterally Extrem General: normal to inspection Psych Appearance: grossly normal Affect: normal affect Assessment and Plan Assessment and Plan (1) Duodenal mass: Status: Acute Plan - Selina BARAJAS PAWendyC: Dr. Tanner will plan to perform an upper scope. Timing will depend on oncology and if they would want this result prior to starting chemotherapy. If the answer is no, then we may be able to complete the upper/lower scope together in 6 weeks from now. If oncology would like results we will plan to perform the upper scope sooner. Timing will depend on oncology recommendation. (2) Colon cancer: Status: Acute Qualifiers: Colon location: sigmoid Qualified Code(s): C18.7 - Malignant neoplasm of sigmoid colon Orders: Referrals: Oncology Plan - Selina BARAJAS PA-C: Dr. Tanner has also discussed the patient's pathology. Patient is requesting Dr. Lovelace for oncology. Dr. Tanner will plan to perform a right internal jugular port-a-cath placement. Procedure details, risks and benefits have been explained. Patient verbally understands and agrees with the plan. We will schedule the patient today for a future port placement. Patient may return to regular diet. He will continue to be off work for 6 weeks total. He continues to be limited to 20 pound weight restriction for 2 weeks. He will follow-up in 1 month. Patient will need another colonoscopy in 6 weeks. He will only require a 1 day bowel prep. (3) Weight gain: Status: Acute Orders: Orders: BNP,B-Type NATRIURETIC PEPTIDE Today Plan - Selina BARAJAS, PAWendyC: Recommend a BNP and 3 days worth of Lasix Plan Details Other Medications: New: furosemide (Lasix) 20 mg PO DAILY 3 days 3 tabs 0RF Coding Level of Care Code Global Post Op Diagnoses Duodenal mass K31.89 Colon cancer C18.7 Colon location: sigmoid Weight gain R63.5 I have re-examined the patient. There are no clinical changes since date of exam.
--- NOTE | 2021-05-02 10:57 | EX.PCM.DISCH ---
Discharge Instructions Procedure Port-A-Cath Diet Discharge Diet: No restrictions (Pain medication may cause nausea. You should typically eat light foods as you take your pain medication.) Activity Discharge Activity: Return to Normal Activity and May Shower (Leave the bandage on for 2-3 days. When you remove the bandage, leave the steri-strips intact until they fall off.) Additional Activity Instructions:: May not drive, work with heavy equipment, or sign legal documents for [address]. [address] if you are no longer taking narcotic pain medications. You may drive when you are no longer taking pain medications. Dressing / Incision Additional Dressing/Incision Instructions:: Leave the bandage on for 2-3 days. When you remove the bandage, leave the steri-strips intact until they fall off. Follow Up Care Please Follow Up With: Brendon Tanner MD When: Call [phone] to make an appointment to be seen in 7 days. Test Results: Test results from this visit will be discussed in further detail at your follow-up appointment, if applicable. Discharge Plan Admission Attending Provider: Brendon Tanner Primary Care Provider: Zuleima Botello Discharge Orders/Prescriptions Prescriptions: No Action multivitamin Tablet 1 tab PO DAILY RF: 0
[2021-05-02] MEDS: Cefazolin 2 GM in 0.9% Normal Saline 100 ML IV (11:14)
[2021-05-02] MEDS: Bupivacaine Mpf 0.5% 30 ML VIAL (11:53)
[2021-05-02] MEDS: Lidocaine 1% (30 ml sdv) 30 ML Vial (11:53)
--- NOTE | 2021-05-02 12:05 | OP.PCM_ITS ---
Problems Associated Problem List Diagnoses (1) Colon cancer: Report of Operation Date of Procedure: 05/02/21 Pre-Operative Diagnosis: Colon cancer Post-Operative Diagnosis: Same Surgery/Procedure Performed:: Right internal jugular 6 Armenian PowerPort placement Reference [id number], lot number [id number] Expiry date 01/28/2022 Description of Surgical Findings:: Timeout and informed consent was obtained. 45-year-old gentleman was taken to the operating room placed upon the table underwent monitored anesthesia care. Ancef 2 g given intravenous preoperatively. The right neck and chest were sterilely prepped draped. 1% lidocaine mixed 50-50 with 0.5% Marcaine was used as a local anesthetic. Total 25 cc was used. Under ultrasound guidance local was instilled then a micropuncture needle inserted in the right internal jugular vein followed by micropuncture wire micropuncture sheath 035 J-wire. Local instilled down upon the right chest wall in an appropriate place a transverse incision was created electrocautery should be used to make a subcutaneous pocket. The tubing was tunneled from the neck to the chest site. Then sheath dilator under fluoroscopic control was placed over the J-wire. The tubing was tunneled from the neck to the chest and then it was placed through the sheath the sheath was split the catheter tip was positioned close to the SVC atrial junction. The catheter was amputated in length connected to the port secured with a cord attachment device the port was placed in the pocket secured there with 2-0 silk. Fluoroscopy demonstrated good positioning. The neck incision had some fibrous tissue that I had to then released to allow for better curvature position of that tubing. That wound was closed with interrupted 5-0 Vicryl subdermal stitch. The chest site was closed interrupted 3-0 Vicryl subdermal stitches. The port was accessed and aspirated easily flushed with saline and then 2 cc of heparinized saline. Steri-Strips Telfa OpSite dressings applied. Sponge and instrument and needle counts were reported to certainly be correct. The patient was taken to the recovery room for stat portable chest x-ray Specimens none. Blood loss minimal. Drains none. Brendon Tanner M.D., F.A.C.S. Surgeon: Brendon Tanner Type of Anesthesia: Local MAC Anesthesiologist: Ubaldo Betancourt
[2021-05-02 12:10] VITALS: BP 123/84; BP 126/92; PULSE 86; RESP 16; TEMP 36.4; O2SAT 96
--- NOTE | 2021-05-02 12:10 | RAD_ITS ---
EXAM DESCRIPTION: PORTABLE AP CHEST CLINICAL HISTORY: 45 years Male, line placement line placement COMPARISON: Previous chest obtained on 04/01/2021 FINDINGS: A right IJ MediPort catheter is noted in place The rest of the thorax is intact. The heart and mediastinum appear to be within normal limits. The lungs appear to be well areated without evidence of pneumonic consolidation or pleural effusion. RAD/Chest 1 View (Portable) IMPRESSION: No acute pathology Electronically Signed: Ronny Hernandez DO at 13:13 EDT Tel , Service support ,
[2021-05-02 12:15] VITALS: BP 126/92; BP 127/98; PULSE 86; RESP 16; O2SAT 97
[2021-05-02 12:20] VITALS: BP 119/89; BP 126/92; PULSE 76; RESP 16; O2SAT 96
[2021-05-02 12:25] VITALS: BP 114/85; BP 126/92; PULSE 78; RESP 16; TEMP 36.2; O2SAT 96
[2021-05-02 13:21] VITALS: BP 111/82; BP 126/92; PULSE 68; RESP 16; TEMP 36.4; O2SAT 98
== END 2021-05-02 13:29 | disposition home or self-care (01) ==
LOC: SDC 09:37 → AC 09:38
PROVIDERS: PCP Family Medicine; Referring Provider Surgery; Visit Provider Surgery
PROC: (CPT 36561; principal; 2021-05-02 11:30)
DX: C18.7 Malignant neoplasm of sigmoid colon (principal); F17.290 Nicotine dependence, other tobacco product, uncomplicated; Z90.49 Acquired absence of other specified parts of digestive tract
CPT/HCPCS: 00532; 36561; 71045; 77001; 87426; C9803; J7120; J2405

== ENCOUNTER 2021-05-13 06:59 | Day surgery (SDC) | payer OTHER, SELFPAY ==
[2021-04-18 09:04] VITALS: BMI 35.4
[2021-05-13] VITALS (7 sets, daily range): BP systolic 91–121; BP diastolic 67–78; PULSE 64–77; RESP 14–16; TEMP 36.1–36.6; O2SAT 94–99; BMI 36.3
[2021-05-13] MEDS: Lactated Ringers 1,000 ML 100 ML IV (07:45)
--- NOTE | 2021-05-13 08:00 | PCM.HP.BLA ---
History and Physical Date of Admission: 05/13/21 Intake Visit Reasons: POST OP COLECTOMY/ BIOPSY RESULTS 04/11 Chief Complaint: post op colectomy Medical Technologist Clinical Required: No Is patient in pain?: No Allergies shellfish derived Adverse Reaction (Intermediate, Verified 04/18/21 09:04) GI Upset Medications ibuprofen 800 mg tablet 800 mg PO BID PRN tab 03/10/21 [History Confirmed 04/18/21] psyllium husk 0.52 gram capsule 0.52 g PO ONCE cap 03/10/21 [History Confirmed 04/18/21] acetaminophen 1,000 mg PO Q6H #0 tab 04/12/21 [Rx Confirmed 04/18/21] furosemide 20 mg tablet 20 mg PO DAILY 3 Days #3 tab 04/18/21 [Rx Confirmed 04/18/21] PFSH Medical History (Updated 04/18/21 @ 09:48 by Selina BARAJAS, PA-C) Alcohol use Back problem BiPAP (biphasic positive airway pressure) dependence Blood in stool Colon cancer Colonic mass Constipation CPAP (continuous positive airway pressure) dependence Family history of colon cancer in father Fatigue Hemorrhoid Intermittent lower abdominal pain Migraine headache Sleep apnea Smoker Weight gain Surgical History (Updated 04/18/21 @ 09:04 by Pooja Arshad) History of colectomy (~03/2021) History of colonoscopy (~03/2021) No significant past surgical history Family History Father Colon cancer Lung cancer Liver cancer Hypertension CVA (cerebral vascular accident) Mother MS (multiple sclerosis) Social History Smoking Status: Current every day smoker tobacco type: smokeless tobacco Smokeless tobacco user: chewing tobacco alcohol intake: current alcohol intake frequency: a few times a week substance use type: does not use caffeine: Yes frequency: does not exercise HPI HPI HPI: ERIC OLIVAS, is a 45 M who presents to the office today s/p laparoscopic hand assist sigmoid colectomy, cholecystectomy. liver biopsy, and removal of peritoneal nodule. Dr. Tanner performed the above procedure on 04/11/21. Patient tolerated the procedure extremely well. Patient was discharged on POD #1. He is tolerating a transitional diet well. He notes some soreness of the abdominal muscles when he uses them. He notes having formed stool. He is urinating well. He denies nausea, vomiting with diet. He denies fever. Pathology demonstrated: MICROSCOPIC DIAGNOSIS A. Gallbladder, cholecystectomy:Chronic cholecystitis and cholelithiasis. B. Sigmoid colon, colectomy:Moderately differentiated invasive adenocarcinoma.Three out of 39 lymph nodes positive for metastatic carcinoma.See cancer summary in the comment section. C. Rectal donut:Colonic donut, no pathologic diagnosis. D. Sigmoid donut:Colonic donut, no pathologic diagnosis. E. Left mid abdominal peritoneal nodule, biopsy:A piece of adipose tissue with extensive fat necrosis and chronic inflammation.Negative for carcinoma. F. Liver, core biopsy:Fragments of benign liver parenchymal tissue and adherent fragments of nerve bundles at the fibrous capsule of the liver tissue.Negative for carcinoma.See comment. SJ:jesus alberto 04/14/2021 COMMENT B. COLON CANCER SUMMARY Procedure: Sigmoidectomy Tumor site: Sigmoid colonTumor size: 5 x 4.5 x 1.2 cm Macroscopic tumor perforation: Not identified Histologic type: Adenocarcinoma [facility] DEPARTMENT OF LABORATORY SURGICAL [id number] [facility] [place], [place] [address] Page 2of 3The contents of this transmission are privileged, confidential and exempt from disclosure under applicable law. If you have received this information in error, call . ERIC OLIVAS MR# [id number] grade: G2 (moderately differentiated)Tumor extension: Tumor invades through the muscularis propria into pericolonic tissue. Margins: Margins are uninvolved by invasive carcinoma, high-grade dysplasia, intramucosal adenocarcinoma and adenoma.The tumor is 6 cm away from one axial resection margin. The tumor is <0.1 cm away from the serosal surface. Treatment effect: No known presurgical therapy. Lymphvascular invasion: Not identified Perineural invasion: Not identified Type of polyp in which invasive carcinoma arose: None identified Tumor deposits: Not identified Regional lymph nodes: Number of lymph nodes examined: 39 Number of lymph nodes involved: 3 Largest focus of metastatic tumor measures 0.7 x 0.6 cm. No extranodal extension is noted. Ancillary studies: Previously performed on section or tumor ([id number])Microsatellite instability study by IHC: Negative (no loss of mismatch protein; no microsatellite instability detected). Additional pathologic findings: None identified PATHOLOGIC STAGE: pT3 pN1b pMx The above summary is in compliance with [employer] (CAP) Cancer Protocols Checklist and [place] Joint Committee on Cancer (AJCC), Staging Manual, 8th Ed.F. Immunohistochemistry ([id number]) supports the above diagnosis.Please make reference to previous specimen ([id number]) proximal sigmoid colon mass, biopsy with diagnosis of invasive well to moderately differentiated adenocarcinoma.Case has been reviewed in consultation with Dr. Reynoso who concurs with the above diagnosis. IDC:AM Patient denies complications with anesthesia. He will need chemotherapy. We will schedule him today for this procedure. He has also had an 8 pound weight gain. He denies shortness of breath. He has been urinating well. Patient also has a 1.7 cm x 1.7 cm by 1.1 cm rounded low density abnormality in the second portion of the duodenum at the level of the ampulla of VATER. An upper scope has not been completed as the colon cancer was identified first. ROS General General: Yes fatigue and colon cancer; No weight change, appetite, breast cancer or weakness HEENT HEENT: No difficulty swallowing, eye injury, eye surgery, swollen glands or hoarseness Endo Endocrine: No thyroid disease, diabetes mellitus, thyroid cancer, Hair loss, heat intolerance or cold intolerance Skin Skin: No rash or changing moles Musc Musculoskeletal: Yes back problems; No arthritis, rheumatoid arthritis, gout or joint pain Cardio Cardiovascular: No murmur, pacemaker, heart disease, atrial fibrillation, high blood pressure, heart attack, heart stent, palpitations, shortness of breat with exertion or chest pain Psych Psychiatric: No depression, anxiety or hearing voices Resp Respiratory: No shortness of breath, Yes sleep apnea, No cough, No COPD, No asthma, No emphysema and No wheezing Gastro Gastrointestinal: Yes abdominal pain, No nausea or vomiting, No diarrhea, Yes constipation, Yes blood in stool, No acid reflux, Yes hemorrhoids, No ulcers, No gallbladder problem and No black,tarry stools Satya Hematologic: No blood thinners, No blood disorders, No bleeding, No anemia and No blood clots Neuro Neurologic: No weakness Exam Const General: cooperative, healthy appearing, comfortable and no acute distress HENMT Head: normal to inspection Eyes General: appearance normal, both eyes and all related structures Neck Neck: normal visual inspection Neck mass: No Resp Effort & Inspection: normal respiratory effort Auscultation: clear to auscultation bilaterally Cardio Rate: regular rate Rhythm: regular rhythm GI Inspection: incision (incisions c/d/i. No erythema or infection noted. ) Palpation: soft, no guarding and nontender Auscultation: normal bowel sounds Skin General: no rashes or lesions noted Neuro General: no focal motor deficits and CN's II-XI intact bilaterally Extrem General: normal to inspection Psych Appearance: grossly normal Affect: normal affect Assessment and Plan Assessment and Plan (1) Duodenal mass: Status: Acute Plan - Selina BARAJAS PAWendyC: Dr. Tanner will plan to perform an upper scope. Timing will depend on oncology and if they would want this result prior to starting chemotherapy. If the answer is no, then we may be able to complete the upper/lower scope together in 6 weeks from now. If oncology would like results we will plan to perform the upper scope sooner. Timing will depend on oncology recommendation. (2) Colon cancer: Status: Acute Qualifiers: Colon location: sigmoid Qualified Code(s): C18.7 - Malignant neoplasm of sigmoid colon Orders: Referrals: Oncology Plan - Selina BARAJAS PA-C: Dr. Tanner has also discussed the patient's pathology. Patient is requesting Dr. Lovelace for oncology. Dr. Tanner will plan to perform a right internal jugular port-a-cath placement. Procedure details, risks and benefits have been explained. Patient verbally understands and agrees with the plan. We will schedule the patient today for a future port placement. Patient may return to regular diet. He will continue to be off work for 6 weeks total. He continues to be limited to 20 pound weight restriction for 2 weeks. He will follow-up in 1 month. Patient will need another colonoscopy in 6 weeks. He will only require a 1 day bowel prep. (3) Weight gain: Status: Acute Orders: Orders: BNP,B-Type NATRIURETIC PEPTIDE Today Plan - Selina BARAJAS PA-C: Recommend a BNP and 3 days worth of Lasix Plan Details Other Medications: New: furosemide (Lasix) 20 mg PO DAILY 3 days 3 tabs 0RF Coding Level of Care Code Global Post Op Diagnoses Duodenal mass K31.89 Colon cancer C18.7 Colon location: sigmoid Weight gain R63.5 I have re-examined the patient. There are no clinical changes since date of exam. The patient presents today for a combined upper and lower endoscopy. A CT scan suggested possible duodenal mass. The patient had a sigmoid colon cancer resected and preoperatively could not have a complete colonoscopy. He presents for a completion of that evaluation. Brendon Tanner M.D., F.A.C.S.
--- NOTE | 2021-05-13 08:15 | EGD_PTH ---
PATIENT: ERIC OLIVAS LOC: EN U#:[id number] AGE/SX: 45/M ROOM: RE05/13/[address]: Dr. Brendon Tanner MD : 1975 BED: DIS: 05/13/2021 SPEC #: [id number] RECD: 05/13/21 10:53 STATUS: HERIBERTO CHRISTENSEN #: [id number] SANTY: 05/13/21 08:[address]: Brendon Tanner DEPT: SURGICAL PATHOLOGY RECD BY: Yakov Rico ENTERED: 05/13/21 13:58 SP TYPE: EGD BIOPSY OT DR: Dr. Zuleima Botello MD Tissues: A - Gastric mucous membrane B - Esophagus, NOS Procedures: Special Stain Group II Surgery Specimen Level IV Alcian Blue/PAS (control) HEADER OPERATION: Colonoscopy, EGD ([facility]) PRE-OP DIAGNOSIS: Duodenal mass, colon cancer TISSUE SUBMITTED: A ? Antrum biopsy for H. pylori and path, B ? Distal esophagus biopsy MICROSCOPIC DIAGNOSIS A. Antrum biopsy: Mild gastritis. See microscopic description and comment. B. Distal esophagus, biopsy: Fragments of gastroesophageal mucosa with mild chronic inflammation. Intestinal metaplasia (goblet cell metaplasia) not identified. See comment. SJ:rg 05/16/2021 COMMENT A. The results of immunohistochemistry for Helicobacter pylori will be reported separately ([id number]). B. Alcian blue/PAS stain with matched control is used in the evaluation of the specimen. MICROSCOPIC DESCRIPTION Slides are reviewed. A. The specimen shows fragments of gastric mucosa with chronic inflammatory cell infiltrates in the lamina propria consisting of lymphocytes and plasma cells, consistent with mild chronic gastritis. GROSS DESCRIPTION A - Received in fixative is one container labeled with the patient's name and designated antrum biopsy. The specimen consists of one irregular fragment of light edwards soft tissue that measures 0.6 x 0.3 x 0.1 cm. The specimen is totally submitted in one cassette. B - Received in fixative is one container labeled with the patient's name and designated distal esophagus biopsy. The specimen consists of two irregular fragments of light edwards soft tissue that in aggregate measure 0.5 x 0.3 x 0.1 cm. The specimen is totally submitted in one cassette. / MY:jesus alberto 05/13/21 TC:5 CPT: 50571 x2, 76158
--- NOTE | 2021-05-13 08:15 | IMM_PTH ---
PATIENT: ERIC OLIVAS LOC: EN U#:[id number] AGE/SX: 45/M ROOM: RE05/13/[address]: Dr. Brendon Tanner MD : 1975 BED: DIS: 05/13/2021 SPEC #: [id number] RECD: 05/13/21 13:01 STATUS: HERIBERTO REGhanshyam #: [id number] SANTY: 05/13/21 08:[address]: Brendon Tanner DEPT: IMMUNOHISTOCHEMISTRY RECD BY: Shira Miranda ENTERED: 05/13/21 13:01 SP TYPE: IMMUNO OTHR DR: Dr. Zuleima Botello MD Tissues: A - Stomach, NOS Procedures: H Pylori (initial) PHYSICIAN & INSTITUTION [place] [address] SPECIMEN INFORMATION: Tissue Source: A ? Antrum biopsy Clinical Info: Duodenal mass, colon cancer Specimen Number: [id number] CPT code: 99826 METHODOLOGY: Deparaffinized sections of prefer/formalin-fixed tissue or PAP/DQ stained slides are incubated with monoclonal/polyclonal antibodies/oligonucleotide probes. Localization is made via biotin free immunoperoxidase method. Appropriate controls are performed and reacted as expected. Results on target cell population are indicated in the following table: RESULTS: ANTIBODY / CLONE RESULT Block A H Pylori (polyclonal) negative These tests were developed and their performance characteristics determined by [facility]. They may not have been cleared or approved by the U.S. Food and Drug Administration. The FDA has determined that such clearance or approval is not necessary. INTERPRETATION: A. Antrum biopsy: Negative for Helicobacter pylori organisms. SJ:jesus alberto 05/16/2021
--- NOTE | 2021-05-16 09:53 | OP.CCLET_ITS ---
05/16/2021 Ramon Lovelace [address] [place] [address] Re : Colonoscopy procedure for Lan Garcia Dear Dr. Lovelace This procedure was performed on Thursday, May 13, 2021. My impressions and recommendations are as follows: Impressions : - Hemorrhoids found on perianal exam. - Patent end-to-end colo-colonic anastomosis, characterized by healthy appearing mucosa. - The examination was otherwise normal. - No specimens collected. Recommendations : - Discharge patient to home. - Resume previous diet. - Continue present medications. - Repeat colonoscopy in 1 year for surveillance. My findings are described in the full procedure note, which is enclosed. If I can be of further assistance, please feel free to contact me at Doctor phone number(s): Work: . Sincerely, Brendon Tanner MD 05/13/2021 9:16:45 AM This report has been signed electronically.
--- NOTE | 2021-05-16 09:53 | OP.COLON_ITS ---
Patient Name: Lan Garcai Procedure Date: 05/13/2021 8:57 AM Date of : 1975 Age: 45 Procedure: Colonoscopy Indications: High risk colon cancer surveillance: Personal history of colon cancer Providers: Brendon Tanner MD Referring MD: Zuleima Botello Medicines: See the Anesthesia note for documentation of the administered medications Patient Profile: Last Colonoscopy: none. The patient's first colonoscopy is today. Complications: No immediate complications. Procedure: Pre-Anesthesia Assessment: - Prior to the procedure, a History and Physical was performed, and patient medications and allergies were reviewed. The patient's tolerance of previous anesthesia was also reviewed. The risks and benefits of the procedure and the sedation options and risks were discussed with the patient. All questions were answered, and informed consent was obtained. Prior Anticoagulants: The patient has taken no previous anticoagulant or antiplatelet agents. ASA Grade Assessment: II - A patient with mild systemic disease. After reviewing the risks and benefits, the patient was deemed in satisfactory condition to undergo the procedure. After I obtained informed consent, the scope was passed under direct vision. Throughout the procedure, the patient's blood pressure, pulse, and oxygen saturations were monitored continuously. The adult colonoscope was introduced through the anus and advanced to the cecum, identified by appendiceal orifice and ileocecal valve. The colonoscopy was performed without difficulty. The patient tolerated the procedure well. The quality of the bowel preparation was good. The ileocecal valve and the appendiceal orifice were photographed. Scope In: 8:58:30 AM Scope Withdrawal Time 0 hours 5 minutes 45 seconds Scope Out: 9:07:24 AM Total Procedure Duration Time 0 hours 8 minutes 54 seconds Findings: Hemorrhoids were found on perianal exam. There was evidence of a prior end-to-end colo-colonic anastomosis in the distal sigmoid colon. This was patent and was characterized by healthy appearing mucosa. The exam was otherwise without abnormality. Impression: - Hemorrhoids found on perianal exam. - Patent end-to-end colo-colonic anastomosis, characterized by healthy appearing mucosa. - The examination was otherwise normal. - No specimens collected. Recommendation: - Discharge patient to home. - Resume previous diet. - Continue present medications. - Repeat colonoscopy in 1 year for surveillance. Procedure Code(s): --- Professional --- 75298, Colonoscopy, flexible; diagnostic, including collection of specimen(s) by brushing or washing, when performed (separate procedure) Diagnosis Code(s): --- Professional --- Z85.038, Personal history of other malignant neoplasm of large intestine K64.9, Unspecified hemorrhoids Z98.0, Intestinal bypass and anastomosis status CPT copyright 2017 [employer]. All rights reserved. The codes documented in this report are preliminary and upon kitchen clerk review may be revised to meet current compliance requirements. Brendon Tanner MD 05/13/2021 9:16:45 AM This report has been signed electronically. Number of Addenda: 0 Note Initiated On: 05/13/2021 8:57 AM
--- NOTE | 2021-05-16 09:53 | OP.CCLET_ITS ---
05/16/2021 Ramon Lovelace [address] [place] [address] Re : Upper GI endoscopy procedure for Lan Garcia Dear Dr. Lovelace This procedure was performed on Thursday, May 13, 2021. My impressions and recommendations are as follows: Impressions : - LA Grade A reflux esophagitis. Biopsied. - Z-line variable, 40 cm from the incisors. - Small hiatal hernia. - Erythematous mucosa in the antrum. Biopsied. - Normal first portion of the duodenum, second portion of the duodenum, area of the papilla, third portion of the duodenum and fourth portion of the duodenum. Recommendations : - Discharge patient to home. - Resume previous diet. - Continue present medications. - Telephone my office for pathology results in 1 week. My findings are described in the full procedure note, which is enclosed. If I can be of further assistance, please feel free to contact me at Doctor phone number(s): Work: . Sincerely, Brendon Tanner MD 05/13/2021 9:12:51 AM This report has been signed electronically.
--- NOTE | 2021-05-16 09:53 | OP.EGD_ITS ---
Patient Name: Lan Garcia Procedure Date: 05/13/2021 8:35 AM Date of : 1975 Age: 45 Procedure: Upper GI endoscopy Indications: Abnormal CT of the GI tract Providers: Brendon Tanner MD Referring MD: Zuleima Botello Medicines: See the Anesthesia note for documentation of the administered medications Complications: No immediate complications. Procedure: Pre-Anesthesia Assessment: - Prior to the procedure, a History and Physical was performed, and patient medications and allergies were reviewed. The patient's tolerance of previous anesthesia was also reviewed. The risks and benefits of the procedure and the sedation options and risks were discussed with the patient. All questions were answered, and informed consent was obtained. Prior Anticoagulants: The patient has taken no previous anticoagulant or antiplatelet agents. ASA Grade Assessment: II - A patient with mild systemic disease. After reviewing the risks and benefits, the patient was deemed in satisfactory condition to undergo the procedure. After obtaining informed consent, the endoscope was passed under direct vision. Throughout the procedure, the patient's blood pressure, pulse, and oxygen saturations were monitored continuously. The Endoscope was introduced through the mouth, and advanced to the second part of duodenum. The colonoscope was introduced through the and advanced to the. The upper GI endoscopy was accomplished without difficulty. The patient tolerated the procedure well. Scope In: 8:42:53 AM Scope Out: 8:54:37 AM Total Procedure Duration Time 0 hours 11 minutes 44 seconds Findings: LA Grade A (one or more mucosal breaks less than 5 mm, not extending between tops of 2 mucosal folds) esophagitis with no bleeding was found 40 cm from the incisors. Biopsies were taken with a cold forceps for histology. The Z-line was variable and was found 40 cm from the incisors. A small hiatal hernia was present. Diffuse mildly erythematous mucosa without bleeding was found in the gastric antrum. Biopsies were taken with a cold forceps for histology. The first portion of the duodenum, second portion of the duodenum, area of the papilla, third portion of the duodenum and fourth portion of the duodenum were normal. Impression: - LA Grade A reflux esophagitis. Biopsied. - Z-line variable, 40 cm from the incisors. - Small hiatal hernia. - Erythematous mucosa in the antrum. Biopsied. - Normal first portion of the duodenum, second portion of the duodenum, area of the papilla, third portion of the duodenum and fourth portion of the duodenum. Recommendation: - Discharge patient to home. - Resume previous diet. - Continue present medications. - Telephone my office for pathology results in 1 week. Procedure Code(s): --- Professional --- 18824, Esophagogastroduodenoscopy, flexible, transoral; with biopsy, single or multiple Diagnosis Code(s): --- Professional --- K21.0, Gastro-esophageal reflux disease with esophagitis K22.8, Other specified diseases of esophagus K44.9, Diaphragmatic hernia without obstruction or gangrene K31.89, Other diseases of stomach and duodenum R93.3, Abnormal findings on diagnostic imaging of other parts of digestive tract CPT copyright 2017 [employer]. All rights reserved. The codes documented in this report are preliminary and upon braille coder review may be revised to meet current compliance requirements. Brendon Tanner MD 05/13/2021 9:12:51 AM This report has been signed electronically. Number of Addenda: 0 Note Initiated On: 05/13/2021 8:35 AM
== END 2021-05-13 09:56 ==
LOC: EN 07:00 → AC 07:00
PROVIDERS: PCP Family Medicine; Referring Provider Family Medicine; Visit Provider Surgery
PROC: 0DJD8ZZ Inspection of Lower Intestinal Tract, Via Natural or Artificial Opening Endoscopic (ICD-10-PCS; CPT 45378; principal; 2021-05-13 08:10)
DX: K29.70 Gastritis, unspecified, without bleeding (principal); C18.7 Malignant neoplasm of sigmoid colon; K44.9 Diaphragmatic hernia without obstruction or gangrene; K64.9 Unspecified hemorrhoids; K21.00 Gastro-esophageal reflux disease with esophagitis, without bleeding; Z98.0 Intestinal bypass and anastomosis status; F17.290 Nicotine dependence, other tobacco product, uncomplicated; G47.30 Sleep apnea, unspecified
CPT/HCPCS: 43239; 45378; 88305; 88313; 88342; J7120; A4216; J2405

== ENCOUNTER 2022-04-14 08:43 | Day surgery (SDC) | payer BC, SELFPAY ==
--- NOTE | 2022-04-14 09:05 | HP.PCM_ITS ---
History and Physical Date of Admission: 04/14/22 On March 2021 I performed a laparoscopic sigmoid colectomy laparoscopic removal of a peritoneal nodule laparoscopic cholecystectomy and a Nolan-Cut liver biopsy. The patient was diagnosed with stage IIIb colon cancer. Most recently in the office I removed a right IJ port for him. He had undergone chemotherapy postoperatively. He now presents for a colonoscopy with possible biopsy or polypectomy as indicated. He presents via the open access program. Allergies shellfish derived Adverse Reaction (Intermediate, Verified 12/09/21 09:00) GI Upset Medications multivitamin 1 tab PO DAILY 04/26/21 [History Confirmed 12/09/21] famotidine 20 mg tablet 20 mg PO BID PRN #90 tab 05/16/21 [Rx Confirmed 12/09/21] Assessment and Plan Assessment and Plan (1) Port-A-Cath in place: ?Status:?Acute ?Patient Instructions: December 14, 2021 I have reviewed the patient's abdominal pelvic CT scan that Dr. Ramon Lovelace had obtained at the [facility] on November 07, 2021.? The report suggest no mass lesion of the duodenum.? I have compared the [facility] updated images to the previous CT scan that had been obtained at the [facility].? The previous item that was felt to possibly be involving the duodenal wall now is not seen and likely represents food or other area of the does not represent a consistent finding. Brendon Tanner M.D., F.A.C.S. 12/14/21 0644 <Electronically signed by Brendon Tanner MD> Date Brendon Tanner MD cc:? Dr. Zuleima Botello MD; Dr. Ramon Lovelace, DO ~* Signed Intake Intake Visit Reasons:?Port Removal/No Blood Thinners Chief Complaint: port removal Stubber Required: No Is patient in pain?: No Allergies shellfish derived Adverse Reaction (Intermediate, Verified 12/05/21 08:57) GI Upset Medications multivitamin 1 tab PO DAILY 04/26/21 [History Confirmed 12/05/21] famotidine 20 mg tablet 20 mg PO BID PRN #90 tab 05/16/21 [Rx Confirmed 12/05/21] PFSH Medical History? Alcohol use Back problem BiPAP (biphasic positive airway pressure) dependence Blood in stool Colon cancer Colonic mass CPAP (continuous positive airway pressure) dependence Family history of colon cancer in father Fatigue Hemorrhoid Intermittent lower abdominal pain Migraine headache Sleep apnea Smoker Weight gain Surgical History? History of cholecystectomy History of colectomy (~03/2021) History of colonoscopy (~03/2021) Family History? Father Colon cancer Lung cancer Liver cancer Hypertension CVA (cerebral vascular accident)Mother MS (multiple sclerosis) Social History? Smoking Status:? Current every day smoker tobacco type: smokeless tobacco Smokeless tobacco user:? chewing tobacco alcohol intake:? current alcohol intake frequency: a few times a week substance use type:? does not use caffeine:? Yes frequency:? does not exercise HPI HPI HPI: ERIC OLIVAS, is a 46 M who presents to the office today for surgical consultation removal of a port.? The patient is referred by Dr. Ramon Lovelace and a written copy of my surgical procedure will be returned to him.? 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 Colonoscopy is to be scheduled in March.? I had assisted him April 11, 2021 with a laparoscopic hand-assisted sigmoid colectomy and cholecystectomy and liver biopsy and removal of a peritoneal nodule. Pathology demonstrated: MICROSCOPIC DIAGNOSIS A.? Gallbladder, cholecystectomy:Chronic cholecystitis and cholelithiasis. B.? Sigmoid colon, colectomy:Moderately differentiated invasive adenocarcinoma.Three out of 39? lymph nodes positive for metastatic carcinoma.See cancer summary in the comment section. C.? Rectal donut:Colonic donut, no pathologic diagnosis. D.? Sigmoid donut:Colonic donut, no pathologic diagnosis. E.? Left mid abdominal peritoneal nodule, biopsy:A piece of adipose tissue with extensive fat necrosis and chronic inflammation.Negative for carcinoma. F.? Liver, core biopsy:Fragments of benign liver parenchymal tissue and adherent fragments of nerve bundles at the fibrous capsule of the liver tissue.Negative for carcinoma.See comment. His most recent upper and lower endoscopy was May 13, 2021.? Those were not remarkable.? CT scan did question the duodenal nodule.? Endoscopy did not demonstrate any such finding. May 02, 2021 I placed a right internal jugular port. Physical exam Patient's alert no acute distress Chest is clear with good effort there is a port site right upper chest slight keloiding Cardiac exam is regular without murmur gallop Abdomen is overweight soft nontender well-healed laparoscopic incisions positive bowel sounds Calves are supple nontender Neurologic exam is grossly intact Office Procedures Port/Peg Provider Documentation Details:: Port removal: Right internal jugular Timeout and informed consent was obtained.? The patient was taken to the procedure room and placed supine on the table.? The site of the port was sterilely prepped and draped.? 1% lidocaine mixed 50-50 with 0.5% Marcaine was used as local anesthetic.? A total of 10 cc was used.? The previous incision was elliptically completely excised and discarded.? Sharp and blunt dissection was used to identify the port.? The tubing was released and with continuous pressure held upon the tunnel site the tubing was removed.? The holding sutures of the port were released and the port was removed from the pocket.? Hemostasis was intact.? The subdermal edges were approximated with interrupted 3-0 chromic.? Skin edges were approximated with Steri-Strips.? Telfa OpSite dressing applied.? Blood loss was minimal.? The patient was given activity and wound care instructions.? Further office follow-up can be as needed.? 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 He will return to the office in 4 days time for suture removal Brendon Tanner M.D., F.A.C.S. Port/Peg Port/Pe Port Removal Procedure Time Out Time Out Informed consent given: Yes Consent signed: Yes Time out checklist: patient, procedure, site marked/identified, positioning of patient, supplies available, allergies confirmed and team agrees on procedure Time out staff in room: Yes Time out verified: Yes Time out date: 12/05/21 Time out time: 09:03 Assessment and Plan Assessment and Plan (1) Port-A-Cath in place: ?Status:?Acute ?Plan - Dr. Brenodn Tanner MD: Successful removal right internal jugular port.? 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 He will return in 4 days for suture removal.? He is due for a colonoscopy in approximately late March or March 2022 based upon his resection for colon cancer.? He will return at that time. As noted above he had a CT scan done at the [facility].? We will get copies of that scan and directly compare them to the previous scan at the [facility] to assure that no duodenal mass is present. Copy: Dr. Ramon Lovelace and Dr. Zuleima Tanner M.D., F.A.C.S. Assessment & Plan Assessment/Plan (1) History of colon cancer: PLAN: Plan The patient presents via open access today. Plan to proceed with colonoscopy with possible biopsy or polypectomy as indicated. He has had an opportunity to ask and have questions answered. We will proceed as noted. Brendon Tanner M.D., F.A.C.S.
[2022-04-14 09:14] VITALS: BP 124/87; PULSE 85; RESP 16; TEMP 36.7; O2SAT 99; BMI 40.0
[2022-04-14] MEDS: Lactated Ringers 1,000 ML 15 ML IV (09:18)
[2022-04-14 10:40] VITALS: BP 107/67; BP 124/87; PULSE 81; RESP 16; TEMP 36.2; O2SAT 92
--- NOTE | 2022-04-14 10:41 | OP.COLON_ITS ---
Patient Name: Lan Garcia Procedure Date: 04/14/2022 10:17 AM Date of : 1975 Age: 46 Procedure: Colonoscopy Indications: High risk colon cancer surveillance: Personal history of colon cancer Providers: Brendon Tanner MD Medicines: See the Anesthesia note for documentation of the administered medications Patient Profile: Last Colonoscopy: 1 year ago. Complications: No immediate complications. Procedure: Pre-Anesthesia Assessment: - Prior to the procedure, a History and Physical was performed, and patient medications and allergies were reviewed. The patient's tolerance of previous anesthesia was also reviewed. The risks and benefits of the procedure and the sedation options and risks were discussed with the patient. All questions were answered, and informed consent was obtained. Prior Anticoagulants: The patient has taken no previous anticoagulant or antiplatelet agents. ASA Grade Assessment: II - A patient with mild systemic disease. After reviewing the risks and benefits, the patient was deemed in satisfactory condition to undergo the procedure. After I obtained informed consent, the scope was passed under direct vision. Throughout the procedure, the patient's blood pressure, pulse, and oxygen saturations were monitored continuously. The adult colonoscope was introduced through the anus and advanced to the cecum, identified by appendiceal orifice and ileocecal valve. The colonoscopy was performed without difficulty. The patient tolerated the procedure well. The quality of the bowel preparation was good. The ileocecal valve and the appendiceal orifice were photographed. Scope In: 10:25:56 AM Scope Withdrawal Time 0 hours 7 minutes 52 seconds Scope Out: 10:35:49 AM Total Procedure Duration Time 0 hours 9 minutes 53 seconds Findings: The digital rectal exam findings include non-thrombosed external hemorrhoids, non-thrombosed internal hemorrhoids and internal hemorrhoids that prolapse with straining, but spontaneously regress to the resting position (Grade II). Pertinent negatives include normal prostate (size, shape, and consistency). There was evidence of a prior end-to-end colo-colonic anastomosis in the proximal rectum. This was patent and was characterized by healthy appearing mucosa. The exam was otherwise without abnormality. Impression: - Non-thrombosed external hemorrhoids, non-thrombosed internal hemorrhoids and internal hemorrhoids that prolapse with straining, but spontaneously regress to the resting position (Grade II) found on digital rectal exam. - Patent end-to-end colo-colonic anastomosis, characterized by healthy appearing mucosa. - The examination was otherwise normal. - No specimens collected. Recommendation: - Discharge patient to home. - Resume previous diet. - Continue present medications. - Repeat colonoscopy in 3 years for surveillance. Procedure Code(s): --- Professional --- 24125, Colonoscopy, flexible; diagnostic, including collection of specimen(s) by brushing or washing, when performed (separate procedure) Diagnosis Code(s): --- Professional --- Z85.038, Personal history of other malignant neoplasm of large intestine K64.1, Second degree hemorrhoids K64.4, Residual hemorrhoidal skin tags Z98.0, Intestinal bypass and anastomosis status CPT copyright 2017 [employer]. All rights reserved. The codes documented in this report are preliminary and upon mount loader review may be revised to meet current compliance requirements. Brendon Tanner MD 04/14/2022 10:41:19 AM This report has been signed electronically. Number of Addenda: 0 Note Initiated On: 04/14/2022 10:17 AM
--- NOTE | 2022-04-14 10:42 | OP.CCLET_ITS ---
04/14/2022 Ramon Lovelace [address] [place] [address] Re : Colonoscopy procedure for Lan Garcia Dear Dr. Lovelace This procedure was performed on Thursday, April 14, 2022. My impressions and recommendations are as follows: Impressions : - Non-thrombosed external hemorrhoids, non-thrombosed internal hemorrhoids and internal hemorrhoids that prolapse with straining, but spontaneously regress to the resting position (Grade II) found on digital rectal exam. - Patent end-to-end colo-colonic anastomosis, characterized by healthy appearing mucosa. - The examination was otherwise normal. - No specimens collected. Recommendations : - Discharge patient to home. - Resume previous diet. - Continue present medications. - Repeat colonoscopy in 3 years for surveillance. My findings are described in the full procedure note, which is enclosed. If I can be of further assistance, please feel free to contact me at Doctor phone number(s): Work: . Sincerely, Brendon Tanner MD 04/14/2022 10:41:19 AM This report has been signed electronically.
[2022-04-14 10:45] VITALS: BP 124/87; BP 138/80; PULSE 80; RESP 16; O2SAT 97
[2022-04-14 10:50] VITALS: BP 124/87; BP 126/85; PULSE 82; RESP 16; O2SAT 96
[2022-04-14 10:56] VITALS: BP 103/71; BP 124/87; PULSE 78; RESP 16; TEMP 36.8; O2SAT 95
[2022-04-14 11:06] VITALS: BP 124/87
== END 2022-04-14 11:07 | disposition home or self-care (01) ==
LOC: EN 08:45 → AC 08:47
PROVIDERS: PCP Family Medicine; Referring Provider Family Medicine; Visit Provider Surgery
PROC: 0DJD8ZZ Inspection of Lower Intestinal Tract, Via Natural or Artificial Opening Endoscopic (ICD-10-PCS; CPT 45378; principal; 2022-04-14 09:55)
DX: Z85.038 Personal history of other malignant neoplasm of large intestine (principal); K64.1 Second degree hemorrhoids; F17.220 Nicotine dependence, chewing tobacco, uncomplicated; K64.4 Residual hemorrhoidal skin tags; G47.30 Sleep apnea, unspecified; Z45.2 Encounter for adjustment and management of vascular access device; Z80.0 Family history of malignant neoplasm of digestive organs; Z98.0 Intestinal bypass and anastomosis status
CPT/HCPCS: 45378; J7120; J2405

== ENCOUNTER → 2023-08-11 | Outpatient (CLI) | payer BC, SELFPAY ==
[2023-08-11 07:56] LABS: Absolute Lymphocyte Count 2.34 X10^3/uL (0.83-4.51); Absolute Neutrophil Count 4.4 X10^3/uL (2.0-7.7); Basophil# 0.06 X10^3/uL; Basophil% 0.8 % (0-1); Eosinophil# 0.05 X10^3/uL; Eosinophils% 0.7 % (0-5); Hemoglobin 16.6 g/dL (13.0-16.5); Lymphocyte # 2.34 X10^3/ul (0.83-4.51); Lymphocyte % 30.9 % (19-41); Mean Corp Hgb Conc 33.2 g/dL (32-36); Mean Corpuscular Hgb 30.2 pg (27.0-32.0); Mean Corpuscular Volume 90.9 fL (80-94); Mean Platelet Vol. 9.8 fl (6.2-12.0); Monocyte# 0.67 X10^3/uL; Monocyte% 8.8 % (0-10); NRBC Flagged by Analyzer 0 % (0-5); Neutrophil # 4.43 X10^3/uL (2.7-7.7); Neutrophil % 58.4 % (47-70); Platelet Count 295 K/mm3 (150-450); RBC Distribution Width CV 12.8 % (11.6-14.6); RBC Distribution Width SD 42.5 fl (35.1-43.9); White Blood Count 7.6 K/mm3 (4.4-11.0)
[2023-08-11 08:45] LABS: ALB/GLOB Ratio 0.9 RATIO (0.9-2.4); AST(SGOT) 16 U/L (15-37); Alanine Aminotransfer ALT/SGPT 34 U/L (16-61); Albumin, Serum 3.5 g/dL (3.2-5.0); Alkaline Phosphatase 80 U/L (45-117); Anion Gap 4 (5-15); BUN 22 mg/dL (7-18); BUN/Creat Ratio 16.2 RATIO (10-20); Chloride 107 mmol/L (98-107); Cholesterol 192 mg/dL (200); Creatinine, Serum 1.36 mg/dL (0.70-1.30); EST Glomerular Filtration Rate 60 mL/min (>60); Est Glom Filt Rate - Afr Amer 72 mL/min (>60); Globulin 3.9 g/dL (2.2-4.2); Glucose 103 mg/dL (74-106); High Density Lipoprotein 48 mg/dL; Potassium 4.3 mmol/L (3.5-5.1); Protein, Total 7.4 g/dL (6.4-8.2); Sodium Level 139 mmol/L (136-145); Thyroid Stim Hormone (TSH) 0.94 uIU/mL (0.358-3.74); Triglycerides 131 mg/dL; Very Low Density Lipoprotein 26 mg/dL (5-40)
[2023-08-17 11:08] LABS: Testosterone, % Free 3.08 % (1.50-4.20); Testosterone, Free 13.06 ng/dL (5.00-21.00); Testosterone, Total 424 ng/dL (264-916); Transferrin 221 mg/dL (177-329)
== END | disposition home or self-care (01) ==
LOC: LAB 07:24
PROVIDERS: PCP Family Medicine; Referring Provider Family Medicine; Visit Provider Family Medicine
DX: Z00.00 Encounter for general adult medical examination without abnormal findings (principal); C18.7 Malignant neoplasm of sigmoid colon; E29.1 Testicular hypofunction; K21.9 Gastro-esophageal reflux disease without esophagitis
CPT/HCPCS: 36415; 80053; 80061; 84146; 84402; 84403; 84443; 84466; 85025

== ENCOUNTER → 2024-03-14 | Outpatient (CLI) | payer BC, SELFPAY ==
--- NOTE | 2024-03-14 12:42 | RAD_ITS ---
STUDY: X-RAY - LEFT KNEE REASON FOR EXAM: Male, 48 years old. One week history of posterior knee pain. TECHNIQUE: view(s) of the knee. COMPARISON: None. FINDINGS: Normal visualized distal femur. There is a 7.1 mm calcified bone island in the medial metaphyseal region of the proximal tibia. Normal proximal tibiofibular articulation. Normal medial femorotibial compartment. Normal lateral femorotibial compartment. Normal patellofemoral articulation. Small joint effusion. RAD/Knee 4 or More Views IMPRESSION: Small joint effusion. Electronically Signed: Renato Alexandra MD at 15:18 EDT ,
== END | disposition home or self-care (01) ==
LOC: MTRAD 12:41
PROVIDERS: PCP Family Medicine; Referring Provider Family Medicine; Visit Provider Family Medicine
DX: M66.0 Rupture of popliteal cyst (principal)
CPT/HCPCS: 73564

== ENCOUNTER → 2025-01-13 | Outpatient (CLI) | payer BC, SELFPAY ==
[2025-01-13 10:23] LABS: Absolute Lymphocyte Count 2.26 X10^3/uL (0.83-4.51); Absolute Neutrophil Count 4.1 X10^3/uL (2.0-7.7); Basophil# 0.05 X10^3/uL; Basophil% 0.7 % (0-1); Eosinophil# 0.08 X10^3/uL; Eosinophils% 1.1 % (0-5); Hemoglobin 17.1 g/dL (13.0-16.5); Lymphocyte # 2.26 X10^3/ul (0.83-4.51); Lymphocyte % 31.4 % (19-41); Mean Corp Hgb Conc 34.9 g/dL (32-36); Mean Corpuscular Hgb 30.2 pg (27.0-32.0); Mean Corpuscular Volume 86.6 fL (80-94); Mean Platelet Vol. 9.9 fl (6.2-12.0); Monocyte# 0.68 X10^3/uL; Monocyte% 9.5 % (0-10); NRBC Flagged by Analyzer 0 % (0-5); Platelet Count 286 K/mm3 (150-450); RBC Distribution Width CV 12.8 % (11.6-14.6); RBC Distribution Width SD 39.8 fl (35.1-43.9); Red Blood Count 5.66 M/mm3 (4.6-6.2); White Blood Count 7.2 K/mm3 (4.4-11.0)
[2025-01-13 11:15] LABS: ALB/GLOB Ratio 1.3 RATIO (0.9-2.4); AST(SGOT) 24 U/L (<=37); Alanine Aminotransfer ALT/SGPT 31 U/L (<=46); Albumin, Serum 4.3 g/dL (3.5-5.0); Alkaline Phosphatase 87 U/L (40-129); Anion Gap 12 (5-15); BUN 20 mg/dL (4-19); BUN/Creat Ratio 16.3 RATIO (10-20); Calcium,Total 9.7 mg/dL (7.6-11.0); Chloride 102 mmol/L (98-108); Cholesterol 193 mg/dL (<=200); Creatinine, Serum 1.21 mg/dL (0.70-1.20); EST Glomerular Filtration Rate 73 (>60); Globulin 3.3 g/dL (2.2-4.2); Glucose 93 mg/dL (70-99); High Density Lipoprotein 47 mg/dL; Low Density Lipoprotein Calc. 110 mg/dL; Potassium 4.1 mmol/L (3.3-5.1); Protein, Total 7.6 g/dL (5.9-8.4); Sodium Level 139 mmol/L (133-145); Total Bilirubin 0.52 mg/dL (0.00-1.30); Triglycerides 184 mg/dL; Very Low Density Lipoprotein 37 mg/dL (5-40); cholesterol:hdl ratio screen 4.14
[2025-01-13 11:26] LABS: Hemoglobin A1c 5.5 % (<=5.6)
== END | disposition home or self-care (01) ==
LOC: MTLAB 08:09
PROVIDERS: PCP Family Medicine; Referring Provider Family Medicine; Visit Provider Family Medicine
DX: Z00.00 Encounter for general adult medical examination without abnormal findings (principal); C18.7 Malignant neoplasm of sigmoid colon; E29.1 Testicular hypofunction; K21.9 Gastro-esophageal reflux disease without esophagitis; Z83.3 Family history of diabetes mellitus
CPT/HCPCS: 36415; 80053; 80061; 83036; 84146; 84402; 84403; 84443; 84466; 85025